=== PATIENT | male | born 1990 | race Caucasian/White ===

== ENCOUNTER 2017-07-27 01:17 | Inpatient (IN) ==
[2017-07-27 01:57] LABS: Basophils % 0.1 %; Eosinophils % 0.2 %; Hematocrit 31.7 % (37.5-50.1); Immature Granulocytes % 0.6 % (0-4); Lymphocytes # 2.1 K/mcL (0.6-4.6); Lymphocytes % 12.2 %; Mean Corpuscular HGB Conc 34.7 g/dL (31.6-35.5); Mean Corpuscular Hemoglobin 25.6 pg (28.0-33.3); Mean Corpuscular Volume 73.9 fL (83.0-100.0); Mean Platelet Volume 9.6 fL (9.4-12.4); Monocytes # 1.4 K/mcL (0.0-1.3); Monocytes % 8.5 %; Neutrophils # 13.3 K/mcL (1.6-8.9); Platelet Count 299 K/mcL (140-400); Red Blood Count 4.29 M/mcL (4.19-5.50); Red Cell Distribution Width 13.6 % (11.5-14.5); Segmented Neutrophils % 78.4 %
[2017-07-27] MEDS ORDERED: 0.9 % Sodium Chloride 1,000 ML IVC ONE (02:15)
[2017-07-27 02:20] LABS: Alanine Aminotransferase 21 Units/L (7-52); Albumin 3.9 g/dL (3.5-5.7); Alkaline Phosphatase 119 Units/L (34-104); Aspartate Amino Transferase 27 Units/L (13-39); BUN/Creatinine Ratio 14 (6-26); Bilirubin,Direct 0.4 mg/dL (0.0-0.2); Bilirubin,Indirect 0.5 mg/dL (0.0-1.2); Bilirubin,Total 0.9 mg/dL (0.3-1.0); Blood Urea Nitrogen 10 mg/dL (6-20); Calcium 9.4 mg/dL (8.6-10.3); Carbon Dioxide 27 mEq/L (23-29); Chloride 93 mEq/L (98-107); Globulin 4.1 g/dL (2.4-3.5); Glucose 121 mg/dL (70-105); Osmolality,Calculated 270 (280-300); Potassium 3.2 mEq/L (3.5-5.1); Sodium 130 mEq/L (136-145); eGFR For African Americans > 60 (> 60); eGFR For Non-African Americans > 60 (> 60)
[2017-07-27 02:34] LABS: INR 1.4; Prothrombin Time 15.5 Seconds (9.4-12.1)
[2017-07-27 02:37] LABS: Activated Partial Thrombo Time 35.9 Seconds (26.0-36.0)
[2017-07-27 02:40] LABS: Phosphorous 3.7 mg/dL (2.7-4.5)
--- NOTE | 2017-07-27 03:15 | Emergency Department Note ---
Disposition Clinical Impression: Cellulitis Qualifiers: Site of cellulitis: other site Qualified Code(s): L03.818 - Cellulitis of other sites Disposition: Admitted As Inpatient Condition: Undetermined Referrals: Ucellie,Salazar Vizcaino MD [Family Provider] - NONE,PCP [Primary Care Provider] - General Adult HPI - General Chief complaint: ED Wound/Laceration Stated complaint: right shoulder abscess Time Seen by Provider: 07/27/17 02:08 Source: patient, family Mode of arrival: ambulatory Limitations: no limitations Nursing Notes Reviewed: Yes Vital Signs Reviewed: Yes - History of Present Illness HPI Narrative: 26-year-old healthy male returns emergency department after being seen 2 days ago with right anterior clavicular cellulitis that has gotten considerably worse over the last 2 days. I initially saw the patient on 07/25. He stated he fell out of bed and was afraid he was broken. After discussing with the patient I determined this is probably cellulitis. I discharged him with clindamycin to cover for MRSA coverage and told him to return should he get worse. Patient returns today and states that the initial cellulitis was due to heroin injection into his shoulder. Which is a change story than previously and states that he has not injected or done anything to aggravate the cellulitis however has continued to spread despite the fact he is taking the antibiotics as prescribed. Patient states he does have fevers, but denies chills. Denies shortness of breath, dyspnea, chest pain, nausea, vomiting, diarrhea. Onset (ago): day(s) Location: other (Right anterior clavicular) Radiation: non-radiation Pain Severity: severe Pain Scale: 10 Quality: aching Consistency: constant Improves with: nothing Worsens with: nothing Associated symptoms: Reports: fever/chills. Denies: confusion, chest pain, cough, diaphoresis, headaches, loss of appetite, malaise, nausea/vomiting, rash , seizure, shortness of breath, syncope, weakness Treatments Prior to Arrival: none - Related Data Previous Rx's Medication Instructions Recorded Clindamycin [Cleocin] 300 mg PO Q6HR #56 capsule 07/25/17 Allergies Allergy/AdvReac Type Severity Reaction Status Date / Time No Known Allergies Allergy Verified 07/25/17 00:46 All systems ED: reviewed and negative except as stated. Review of Systems: As Per HPI Constitutional: Reports: fever. Denies: chills Cardiovascular: Denies: chest pain, edema, syncope Respiratory: Denies: cough, dyspnea, wheezes, hemoptysis, sputum production Gastrointestinal: Denies: abdominal pain, nausea, vomiting, diarrhea Musculoskeletal: Denies: back pain Integumentary: Reports: other (Cellulitis to right clavicular area that has gotten considerably bigger the last couple days) Past Medical History - Past Medical History Medical history: Reports: no medical history Psychiatric history: Reports: no psych history - Social History Smoking Status: Never smoker Smokeless Tobacco Status: No Alcohol use: Reports: none Drug use: Reports: none Physical Exam - General Limitations: no limitations General appearance: alert, in no apparent distress - Head Head exam: atraumatic, normocephalic, normal inspection - Eye Eye exam: Present: normal appearance, PERRL, EOMI - Neck Neck exam: Present: normal inspection, full ROM, trachea midline - Chest Chest inspection: Present: normal inspection, symmetric chest wall rise - Expanded Chest Exam Breast: erythema: right (Circumferential erythema from cellulitis to the anterior clavicular area), swelling: right (Circumferential erythema from cellulitis to the anterior clavicular area), tenderness: right (Circumferential erythema from cellulitis to the anterior clavicular area) - Respiratory Respiratory exam: Present: normal lung sounds bilaterally - Cardiovascular Cardiovascular exam: Present: regular rate, normal rhythm, normal heart sounds - Back Exam Back exam: Present: normal inspection, full ROM. Absent: tenderness - Neurological Exam Neurological exam: Present: alert, oriented X3 - Psychiatric Psychiatric exam: Present: normal affect, normal mood - Skin Skin exam: Present: warm, dry, intact, normal color Course Course Narrative: 26-year-old healthy male returns emergency department after being seen 2 days ago with right anterior clavicular cellulitis that has gotten considerably worse over the last 2 days. I initially saw the patient on 07/25. He stated he fell out of bed and was afraid he was broken. After discussing with the patient I determined this is probably cellulitis. I discharged him with clindamycin to cover for MRSA coverage and told him to return should he get worse. Patient returns today and states that the initial cellulitis was due to heroin injection into his shoulder. Which is a change story than previously and states that he has not injected or done anything to aggravate the cellulitis however has continued to spread despite the fact he is taking the antibiotics as prescribed. Patient states he does have fevers, but denies chills. Denies shortness of breath, dyspnea, chest pain, nausea, vomiting, diarrhea. Exam reveals approximately a 4 inch wide fluctuants very erythemic area to the anterior right clavicule with large radius of circumferential erythema. There is no drainage from the area. Patient has full range of motion to his right arm and neck. The area does not come up on his neck as a stops just at the base of his neck. We do not have comparative labs as I do not rolled on the last time however patient does appear more ill we did draw CBC and a BMP which shows white count 17. With the large increase of cellulitis and failed outpatient treatment and the elevated white count we will admit for failed outpatient treatment of cellulitis. Page for hospitalist for consult. After blood cultures we will start empiric antibiotics. - Reevaluation(s) Reevaluation #1: Dr. Kimball except the patient and he will be placed on 3 NE. for IV antibiotics and failed outpatient cellulitis. Reevaluation #2: Patient will need surgical consult for I&D of cellulitis, spoke with Dr. Arnold who states she will see patient today and requests a CAT scan prior to seeing him. One had placed CAT scan ordered. Time: 05:16 Vital Signs Temperature 99.1 F 07/27/17 01:17 Pulse Rate 105 07/27/17 01:17 Respiratory Rate 20 07/27/17 01:17 Blood Pressure 125/84 07/27/17 01:17 O2 Sat by Pulse Oximetry 96 07/27/17 01:17 Temperature 99.1 F 07/27/17 01:17 Pulse Rate 79 07/27/17 05:04 Respiratory Rate 18 07/27/17 05:04 Blood Pressure 113/74 07/27/17 05:04 O2 Sat by Pulse Oximetry 97 07/27/17 05:04 Oxygen Delivery Oxygen Delivery Room Air Medical Decision Making - Lab Data Result diagrams: 07/27/17 01:45 07/27/17 01:45 Lab Results 07/27/17 07/27/17 07/27/17 Range/Units 01:45 01:45 01:45 WBC 17.0 H (4.3-11.1) K/mcL RBC 4.29 (4.19-5.50) M/mcL Hgb 11.0 L (12.9-16.9) g/dL Hct 31.7 L (37.5-50.1) % MCV 73.9 L (83.0-100.0) fL MCH 25.6 L (28.0-33.3) pg MCHC 34.7 (31.6-35.5) g/dL RDW 13.6 (11.5-14.5) % Plt Count 299 (140-400) K/mcL MPV 9.6 (9.4-12.4) fL Immature Gran % 0.6 (0-4) % Seg Neutrophils % 78.4 % Lymphocytes % 12.2 % Monocytes % 8.5 % Eosinophils % 0.2 % Basophils % 0.1 % Neutrophils # 13.3 H (1.6-8.9) K/mcL Lymphocytes # 2.1 (0.6-4.6) K/mcL Monocytes # 1.4 H (0.0-1.3) K/mcL Eosinophils # 0.0 (0.0-0.6) K/mcL Basophils # 0.0 (0.0-0.2) K/mcL PT (9.4-12.1) Seconds INR APTT (26.0-36.0) Seconds Sodium 130 L (136-145) mEq/L Potassium 3.2 L (3.5-5.1) mEq/L Chloride 93 L (98-107) mEq/L Carbon Dioxide 27 (23-29) mEq/L BUN 10 (6-20) mg/dL Creatinine 0.71 (0.70-1.30) mg/dL Est GFR ( Amer) > 60 (> 60) Est GFR (Non-Af Amer) > 60 (> 60) BUN/Creatinine Ratio 14 (6-26) Glucose 121 H (70-105) mg/dL Calculated Osmolality 270 L (280-300) Lactic Acid 1.2 (0.5-2.2) mmol/L Calcium 9.4 (8.6-10.3) mg/dL Phosphorus (2.7-4.5) mg/dL Magnesium (1.6-2.6) mg/dL Total Bilirubin 0.9 (0.3-1.0) mg/dL Direct Bilirubin 0.4 H (0.0-0.2) mg/dL Indirect Bilirubin 0.5 (0.0-1.2) mg/dL AST 27 (13-39) Units/L ALT 21 (7-52) Units/L Alkaline Phosphatase 119 H (34-104) Units/L Serum Total Protein 8.0 (6.4-8.9) g/dL Albumin 3.9 (3.5-5.7) g/dL Globulin 4.1 H (2.4-3.5) g/dL Albumin/Globulin Ratio 1.0 L (1.1-2.2) Urine Color (Yellow) Urine Clarity (Clear) Urine pH (5.0-8.0) pH Units Ur Specific [place] (1.010-1.025) Urine Protein (Neg-Trace) mg/dL Urine Glucose (UA) (Normal) mg/dL Urine Ketones (Negative) mg/dL Urine Blood (Negative) Urine Nitrite (Negative) Urine Bilirubin (Negative) Urine Urobilinogen (Normal) mg/dL Ur Leukocyte Esterase (Negative) Ur Culture Indicated? (NO) 07/27/17 07/27/17 07/27/17 Range/Units 01:49 01:49 04:57 WBC (4.3-11.1) K/mcL RBC (4.19-5.50) M/mcL Hgb (12.9-16.9) g/dL Hct (37.5-50.1) % MCV (83.0-100.0) fL MCH (28.0-33.3) pg MCHC (31.6-35.5) g/dL RDW (11.5-14.5) % Plt Count (140-400) K/mcL MPV (9.4-12.4) fL Immature Gran % (0-4) % Seg Neutrophils % % Lymphocytes % % Monocytes % % Eosinophils % % Basophils % % Neutrophils # (1.6-8.9) K/mcL Lymphocytes # (0.6-4.6) K/mcL Monocytes # (0.0-1.3) K/mcL Eosinophils # (0.0-0.6) K/mcL Basophils # (0.0-0.2) K/mcL PT 15.5 H (9.4-12.1) Seconds INR 1.4 APTT 35.9 (26.0-36.0) Seconds Sodium (136-145) mEq/L Potassium (3.5-5.1) mEq/L Chloride (98-107) mEq/L Carbon Dioxide (23-29) mEq/L BUN (6-20) mg/dL Creatinine (0.70-1.30) mg/dL Est GFR ( Amer) (> 60) Est GFR (Non-Af Amer) (> 60) BUN/Creatinine Ratio (6-26) Glucose (70-105) mg/dL Calculated Osmolality (280-300) Lactic Acid (0.5-2.2) mmol/L Calcium (8.6-10.3) mg/dL Phosphorus 3.7 (2.7-4.5) mg/dL Magnesium 2.0 (1.6-2.6) mg/dL Total Bilirubin (0.3-1.0) mg/dL Direct Bilirubin (0.0-0.2) mg/dL Indirect Bilirubin (0.0-1.2) mg/dL AST (13-39) Units/L ALT (7-52) Units/L Alkaline Phosphatase (34-104) Units/L Serum Total Protein (6.4-8.9) g/dL Albumin (3.5-5.7) g/dL Globulin (2.4-3.5) g/dL Albumin/Globulin Ratio (1.1-2.2) Urine Color Yellow (Yellow) Urine Clarity Clear (Clear) Urine pH 6.5 (5.0-8.0) pH Units Ur Specific [place] < 1.005 L (1.010-1.025) Urine Protein Negative (Neg-Trace) mg/dL Urine Glucose (UA) Normal (Normal) mg/dL Urine Ketones Negative (Negative) mg/dL Urine Blood Negative (Negative) Urine Nitrite Negative (Negative) Urine Bilirubin Negative (Negative) Urine Urobilinogen Normal (Normal) mg/dL Ur Leukocyte Esterase Negative (Negative) Ur Culture Indicated? NO (NO)
[2017-07-27 05:10] LABS: Bilirubin,Urine Negative (Negative); Blood,Urine Negative (Negative); Clarity,Urine Clear (Clear); Color,Urine Yellow (Yellow); Glucose,Urine (UA) Normal (Normal); Ketones,Urine Negative (Negative); Leukocyte Esterase,Urine Negative (Negative); Nitrite,Urine Negative (Negative); PH,Urine 6.5 pH Units (5.0-8.0); Protein,Urine Negative (Neg-Trace); Specific Gravity,Urine < 1.005 (1.010-1.025); Urobilinogen,Urine Normal (Normal)
--- NOTE | 2017-07-27 07:46 | Emergency Department Note ---
Attestation Statement - Attestation Attestation: I, Tom Pacheco MD, personally evaluated this patient and discussed their management with the midlevel provicer, [employer]. I reviewed the midlevel provider 's note and agree with the documented findings, medical decision making, and plan of care. 26-year-old male presents to the emergency department complaining of an abscess to the right clavicle region. Symptoms started several days ago. He was seen here about 2 days ago and the area was just indurated at that time. He was started on antibiotics. He returns now with significant worsening of the symptoms despite taking antibiotics. He admits to some fever. On examination patient is a well-developed well-nourished well-appearing young male in no acute distress. He is alert and oriented 3. There is no cyanosis or diaphoresis. There is a large fluctuant abscess overlying the right clavicular area with moderate surrounding cellulitis and erythema and warmth to touch. This does not involve the neck. Breath sounds are clear and equal bilaterally. Heart regular rate and rhythm. Abdomen soft and nontender with normal bowel sounds. Labs reviewed. The hospitalist, Dr. Mcguire, was consulted and accepted admission of the patient.
[2017-07-27] MEDS ORDERED: Naloxone 0.4 MG/ML INJ IVP PRN (08:15)
--- NOTE | 2017-07-27 08:54 | General Surgery Consult Note ---
<Jie Krishnan H - Last Filed: 07/27/17 09:36> Date of Encounter: 07/27/17 Time of Encounter: 08:50 Assessment and Plan (1) Abscess Current Visit: Yes Status: Acute 26-year-old male with history of IVDU with large fluctuant mass consistent with abscess located over his right clavicle. -IV antibiotics with zosyn and vancomycin. -Pain control with acetominophen. -We will obtain CT scan of right shoulder. -Likely bedside I&D. -Abscess fluid to culture-aerobic and anaerobic, gram stain (2) IVDU (intravenous drug user) Current Visit: Yes Status: Acute Patient currently on suboxone. Reports recent relapse. -States he has been in contact with his counselor. -management per primary team. History of Present Illness Consult date: 07/27/17 Reason for consult: other (abscess) Requesting physician: Aric Hartmann History of present illness: Mr. Hector is a 26-year-old male with past medical history of substance abuse who presented to [facility] on 07/27/2017 with complaints of right clavicular swelling and discomfort. Patient states he shot up IV heroin last Sunday in the area of the swelling. After which, he states the area was painful. The area has continued to become swollen and hard. He presented to the emergency department 2 days ago. It was found at that time that the area was indurated. He was given oral antibiotics. He reports antibiotic compliance , however, the area continued to swell and become painful, therefore, he returned. He denies any fevers, chills, or night sweats. He denies any chest pain, palpitations, shortness of breath, or diaphoresis. He denies any abdominal pain, nausea, vomiting, or diarrhea. He denies any weakness or numbness in his right upper extremity. He does report difficulty in moving his neck secondary to pain. Patient states he was clean for 4 years prior to relapsing on Sunday. He takes Suboxone regularly. He denies any other past medical or surgical history. He does report breaking his left clavicle when he was younger. Past Med Surg Social Fam HX - Past Medical History Attestation: Yes The following information was validated with the patient. Source: patient Medical history: other (IV drug use) Psychiatric history: other (Substance abuse) - Past Surgical History Surgical History: no surgical history - Social History Smoking Status: Never smoker Smokeless Tobacco Status: No Alcohol use: none Drug use: opiates, IV Drug Use - Family History Mother Living Status: Still Living Hx Family Autoimmune Disorders: No Father Living Status: Still Living Hx Family Autoimmune Disorders: No Medications and Allergies Buprenorphine HCl/Naloxone HCl [Suboxone 8 mg-2 mg Sl Film] 0.5 film SL QPM 07/15 [History] Buprenorphine HCl/Naloxone HCl [Suboxone 8 mg-2 mg Sl Film] 1 film SL QAM [History] 3 Allergy/AdvReac Type Severity Reaction Status Date / Time No Known Allergies Allergy Verified 07/25/17 00:46 Review of Systems All systems PM: The remainder of the systems were reviewed and are negative - Constitutional no chills, no fever(s), no night sweats - Cardiovascular as per HPI - Respiratory as per HPI, no cough, no stridor - Gastrointestinal as per HPI - Integumentary as per HPI, erythema (In area of clavicle), skin pain - Neurological no abnormal gait, no confusion, no syncope - Psychiatric other (Substance abuse) - Endocrine as per HPI - Allergic/Immunologic no tongue swelling, no throat swelling, no uticaria, no wheezing General Surgery Exam Initial Vital Signs Temp Pulse Resp BP Pulse Ox 99.1 F 105 20 125/84 96 07/27/17 01:17 07/27/17 01:17 07/27/17 01:17 07/27/17 01:17 07/27/17 01:17 - General physical appearance well developed, well nourished, no distress - Eyes normal ocular movement - ENT atraumatic, normocephalic, CN 2-12 grossly intact - Neck trachea midline, no lymphadectomy, other (Patient with a large, approximately 5 cm fluctuant mass anterior to the right clavicle approximately 1 cm to the right of the angle of the neck. There is surrounding erythema and warmth.) - Respiratory normal expansion, normal respiratory effort, clear to percussion, clear to auscultation - Cardiovascular Cardiovascular exam: Present: RRR, no murmurs/rubs/gallops - Abdomen Abdomen general surgery: Present: bowel sounds present, soft, non tender - Neurologic Present: CN 2-12 grossly intact, normal coordination, normal sensation - Psychiatric Psychiatric general surgery: Present: A&Ox3, speech is normal, memory intact Exam Initial Vital Signs Temp Pulse Resp BP Pulse Ox 99.1 F 105 20 125/84 96 07/27/17 01:17 07/27/17 01:17 07/27/17 01:17 07/27/17 01:17 07/27/17 01:17 Results - Labs 07/27/17 01:45 07/27/17 01:45 Abnormal lab results WBC 17.0 K/mcL (4.3-11.1) H 07/27/17 01:45 Hgb 11.0 g/dL (12.9-16.9) L 07/27/17 01:45 Hct 31.7 % (37.5-50.1) L 07/27/17 01:45 MCV 73.9 fL (83.0-100.0) L 07/27/17 01:45 MCH 25.6 pg (28.0-33.3) L 07/27/17 01:45 Neutrophils # 13.3 K/mcL (1.6-8.9) H 07/27/17 01:45 Monocytes # 1.4 K/mcL (0.0-1.3) H 07/27/17 01:45 PT 15.5 Seconds (9.4-12.1) H 07/27/17 01:49 Sodium 130 mEq/L (136-145) L 07/27/17 01:45 Potassium 3.2 mEq/L (3.5-5.1) L 07/27/17 01:45 Chloride 93 mEq/L (98-107) L 07/27/17 01:45 Glucose 121 mg/dL (70-105) H 07/27/17 01:45 Calculated Osmolality 270 (280-300) L 07/27/17 01:45 Direct Bilirubin 0.4 mg/dL (0.0-0.2) H 07/27/17 01:45 Alkaline Phosphatase 119 Units/L (34-104) H 07/27/17 01:45 Globulin 4.1 g/dL (2.4-3.5) H 07/27/17 01:45 Albumin/Globulin Ratio 1.0 (1.1-2.2) L 07/27/17 01:45 Ur Specific [place] < 1.005 (1.010-1.025) L 07/27/17 04:57 All other labs normal. Consult Discharge Plan - Plan Additional Instructions: Wound care- cleanse with soap and water in the shower and pat dry, packed open area with a 1/4 inch plain gauze, cover with dry dressing, tape to secure daily. Referrals: Patricia Naqvi CNP [Advanced Practice Nurse] - 08/06/17 2:30 pm (Hospital follow-up for I&D) Salazar Ash MD [Family Provider] - NONE,PCP [Primary Care Provider] - <Joanne York - Last Filed: 07/27/17 17:50> Date of Encounter: 07/27/17 Review of Systems All systems PM: The remainder of the systems were reviewed and are negative General Surgery Exam Initial Vital Signs Temp Pulse Resp BP Pulse Ox 99.1 F 105 20 125/84 96 07/27/17 01:17 07/27/17 01:17 07/27/17 01:17 07/27/17 01:17 07/27/17 01:17 Exam Initial Vital Signs Temp Pulse Resp BP Pulse Ox 99.1 F 105 20 125/84 96 07/27/17 01:17 07/27/17 01:17 07/27/17 01:17 07/27/17 01:17 07/27/17 01:17 Results - Labs 07/27/17 01:45 07/27/17 01:45 Abnormal lab results WBC 17.0 K/mcL (4.3-11.1) H 07/27/17 01:45 Hgb 11.0 g/dL (12.9-16.9) L 07/27/17 01:45 Hct 31.7 % (37.5-50.1) L 07/27/17 01:45 MCV 73.9 fL (83.0-100.0) L 07/27/17 01:45 MCH 25.6 pg (28.0-33.3) L 07/27/17 01:45 Neutrophils # 13.3 K/mcL (1.6-8.9) H 07/27/17 01:45 Monocytes # 1.4 K/mcL (0.0-1.3) H 07/27/17 01:45 PT 15.5 Seconds (9.4-12.1) H 07/27/17 01:49 Sodium 130 mEq/L (136-145) L 07/27/17 01:45 Potassium 3.2 mEq/L (3.5-5.1) L 07/27/17 01:45 Chloride 93 mEq/L (98-107) L 07/27/17 01:45 Glucose 121 mg/dL (70-105) H 07/27/17 01:45 Calculated Osmolality 270 (280-300) L 07/27/17 01:45 Direct Bilirubin 0.4 mg/dL (0.0-0.2) H 07/27/17 01:45 Alkaline Phosphatase 119 Units/L (34-104) H 07/27/17 01:45 Globulin 4.1 g/dL (2.4-3.5) H 07/27/17 01:45 Albumin/Globulin Ratio 1.0 (1.1-2.2) L 07/27/17 01:45 Ur Specific [place] < 1.005 (1.010-1.025) L 07/27/17 04:57 All other labs normal. - Imaging Additional studies: CT chest personally reviewed by myself - Attending Attestation I examined this patient and my medical decision-making was reviewed with the Resident Physician. I agree with the documented findings, disposition and treatment plan as described except to the extent set forth below.
--- NOTE | 2017-07-27 08:56 | Internal Med History&Physical ---
Date of Encounter: 07/27/17 Time of Encounter: 08:00 Assessment and Plan (1) Abscess Current visit: Yes Status: Acute 1. Will place on Vancomycin and Zosyn. 2. Blood cultures obtained in ER. 3. Consult surgery for I&D of abscess. 4. I ordered CT shoulder to evaluate abscess and for further anatomical assessment. (2) IVDU (intravenous drug user) Current visit: Yes Status: Acute 1. Patient reports this was his first relapse in four years. 2. Will order urine drug screen. 3. Patient on Suboxone -- continue while in the hospital. (3) DVT prophylaxis Current visit: Yes Status: Acute 1. Heparin SQ. Internal Medicine - H&P: HPI Chief complaint: right shoulder pain Admitted From: Emergency Dept Plans for Post Hospital Care: Home History of present illness: Mr. Hector is a 26 year old male who presents the ER tonight/this morning with complaints of worsening pain and swelling in his right shoulder/neck area. He presented to the ER the night before with same symptoms and he came back for worsening findings. Upon his repeat visit to the ER, he admits that he was injecting heroin in that site whereas he did not admit to any injections the previous visit. As such, he was treated for cellulitis and admitted to hospitalist service. Surgery was consulted who requested a CT scan. Upon my assessment of the patient, he complains of exquisite pain, limited range of motion, and low-grade fevers for the last few days. Regarding his heroin use, he states it is the first time he has used drugs in 4 years. He has been clean from street drugs for 4 years until this week when the relapsed. He denies any chest pain or difficulty breathing. He denies any nausea, vomiting, or diarrhea. He denies any numbness or weakness in his arm or hand. Past Med Surg Social Fam HX - Past Medical History Attestation: Yes The following information was validated with the patient. Source: patient, old records reviewed Medical history: no medical history Psychiatric history: no psych history - Past Surgical History Surgical History: no surgical history - Social History Smoking Status: Never smoker Smokeless Tobacco Status: No Alcohol use: none Drug use: IV Drug Use Current living situation: Home, With Family Activity Level: Independent ambulation Recent Out of Country Travel Within the Last 8 Weeks: No - Family History Mother Living Status: Still Living Hx Family Autoimmune Disorders: No Father Living Status: Still Living Hx Family Autoimmune Disorders: No Internal Medicine - H&P: Meds Buprenorphine HCl/Naloxone HCl [Suboxone 8 mg-2 mg Sl Film] 0.5 film SL QPM 07/15 [History] Buprenorphine HCl/Naloxone HCl [Suboxone 8 mg-2 mg Sl Film] 1 film SL QAM [History] 3 Allergy/AdvReac Type Severity Reaction Status Date / Time No Known Allergies Allergy Verified 07/25/17 00:46 - Constitutional Constitutional: chills, fever(s), no night sweats - EENT Eyes: no blurry vision, no change in vision Ears: no ear pain, no tinnitus Nose, mouth and throat: no facial pain, no hoarseness, no nasal congestion, no nasal discharge, no sinus pain, no sore throat, no throat swelling - Cardiovascular Cardiovascular ROS IM: no chest pain, no dyspnea, no dyspnea on exertion, no palpitations, no syncope - Respiratory Respiratory: no cough, no dyspnea, no hemoptysis, no chest congestion, no excessive phlegm production - Gastrointestinal Gastrointestinal: no abdominal pain, no diarrhea, no hematemesis, no hematochezia, no melena, no nausea, no vomiting - Genitourinary Genitourinary ROS male: no dysuria, no flank pain, no hematuria - Musculoskeletal Musculoskeletal ROS IM: arthralgias (right shoulder), limited range of motion ( right shoulder), no numbness, no tingling - Integumentary Integumentary IM: erythema (right shoulder/neck area), no jaundice - Neurological Neurological ROS: no dizziness, no focal weakness, no frequent falls, no headache(s) - Psychiatric Psychiatric: no anxiety, no depression - Endocrine Endocrine IM: no polydipsia, no polyuria - Hematologic/Lymphatic Hematologic/Lymphatic: no easy bruising, no lymphadenopathy - Allergic/Immunologic Allergic/Immunologic: no wheezing, no GI upset with certain foods - Constitutional Vitals: Temp Pulse Resp BP Pulse Ox 97.8 F 65 14 101/62 98 07/27/17 06:51 07/27/17 06:51 07/27/17 06:51 07/27/17 06:51 07/27/17 06:51 General appearance: Present: cooperative, A&O X 3, pleasant, no acute distress, answers questions appropriately - Head Head exam: Present: atraumatic, normal inspection - Eye Eye exam: Present: EOMI, normal appearance, PERRL. Absent: scleral icterus Pupils: Present: normal accommodation - ENT ENT exam: Present: mucous membranes dry, normal exam, normal external ear exam, normal oropharynx - Neck Neck exam general surgery: Present: full ROM, supple, trachea midline. Absent: lymphadenopathy, tenderness, nuchal rigidity - Respiratory Respiratory exam: Present: CTAB. Absent: chest wall tenderness, rales, respiratory distress, rhonchi, wheezes - Cardiovascular Cardiovascular exam: Present: RRR, +S1, +S2. Absent: diastolic murmur, systolic murmur - GI/Abdominal GI/Abdominal exam: Present: normal bowel sounds, soft. Absent: guarding, hepatomegaly, mass, splenomegaly, tenderness - Extremities Exam Extremities exam: Present: full ROM, normal capillary refill, warm, radial pulses palpable and symmetrical. Absent: calf tenderness, joint swelling, tenderness - Back Exam Back exam: Absent: CVA tenderness (L), CVA tenderness (R) - Neurological Exam Neurological exam: Present: alert, CN II-XII intact, oriented X3, no focal deficits - Psychiatric Psychiatric exam: Present: normal affect, normal mood - Skin Skin exam: Present: dry, erythema, warm Additional comments: Area approximately 6x6 cm along upper chest/clavicle area on the right with intense redness, warmth, fluctuance, and tenderness consistent with skin abscess. Area is medial to his shoulder and lateral to the neck. No involvement of neck or shoulder joint on exam. Internal Med - H&P Results - Labs CBC & Chem 7: 07/27/17 01:45 07/27/17 01:45 Labs: Urine 07/27/17 Range/Units 04:57 Urine Color Yellow (Yellow) Urine Clarity Clear (Clear) Urine pH 6.5 (5.0-8.0) pH Units Ur Specific [place] < 1.005 L (1.010-1.025) Urine Protein Negative (Neg-Trace) mg/dL Urine Glucose (UA) Normal (Normal) mg/dL
[2017-07-27] MEDS ORDERED: Lidocaine 1% 20 ML MDV INFILT ONE (09:30)
--- NOTE | 2017-07-27 12:15 | General Surgery Procedure Note ---
Date of procedure: 07/27/17 Pre-op diagnosis: Right neck/chest abscess Post-op diagnosis: same Procedure: After informed consent was obtained and timeout completed, the patient's right chest and neck was prepped and draped. The area was localized with 10 ML's of 1% lidocaine. After achieving appropriate localization, a 3cm incision was made over the most fluctuant area using a size 11 blade. There was immediate return of copious amounts of purulent, foul smelling drainage. The cavity was further opened and decompressed using hemostats. Gram stain, aerobic, and anaerobic cultures were obtained. The cavity was flushed using 40 MLs of saline and then packed with 1/4 inch iodoform gauze and covered with a dry dressing. Complications: none Anesthesia: local Surgeon: Patricia Naqvi Estimated blood loss (cc): 0 Pathology: other (Gram stain, aerobic and anaerobic cultures) Condition: stable Disposition: no change - Patient Status Disposition: Home, Self-Care Condition: Good Overall status at discharge: patient is progressing back to baseline - Discharge Instructions Follow Up With: Salazar Ash MD [Family Provider] - NONE,PCP [Primary Care Provider] - Patricia Naqvi CNP [Advanced Practice Nurse] - 08/06/17 2:30 pm (Hospital follow-up for I&D) Additional Instructions: Wound care- cleanse with soap and water in the shower and pat dry, packed open area with a 1/4 inch plain gauze, cover with dry dressing, tape to secure daily. - Diet and Activity Activity: increase activity as tolerated Diet: regular diet
[2017-07-27] MEDS: Acetaminophen 325 MG TABLET PO PRN ×2 (15:03→21:16)
[2017-07-27] MEDS: 0.9 % Sodium Chloride w KCl 20 MEQ/1,000 ML MLS IVC SCH (15:03)
[2017-07-27 15:27] LABS: Amphetamine Screen,Urine Negative ng/mL (Cutoff=1000); Barbiturate Screen,Urine Negative ng/mL (Cutoff=200); Benzodiazepines Screen,Urine Negative ng/mL (Cutoff=200); Cannabinoid Screen,Urine Negative ng/mL (Cutoff = 50); Cocaine Screen,Urine Negative ng/mL (Cutoff= 300); Opiate Screen,Urine Negative ng/mL (Cutoff=300); Phencyclidine Screen,Urine Negative ng/mL (Cutoff=25)
[2017-07-27] MEDS ORDERED: Piperacillin/Tazobactam 3.375 GM in 0.9 % Sodium Chloride Mini Bag 100 ML IVPB SCH (16:00)
[2017-07-27] MEDS: *HR* Heparin 5,000 UNIT/ML VIAL SQ SCH (17:05)
[2017-07-27] MEDS: (Buprenorphine Hcl/Naloxone Hcl [Suboxone 8 Mg-2 Mg S) SL SCH (17:18)
[2017-07-27] MEDS: Piperacillin/Tazobactam 3.375 GM in 0.9 % Sodium Chloride Mini Bag 100 ML IVPB SCH (23:51)
[2017-07-28 02:21] LABS: Basophils % 0.2 %; Eosinophils # 0.1 K/mcL (0.0-0.6); Eosinophils % 0.9 %; Hematocrit 28.6 % (37.5-50.1); Hemoglobin 9.8 g/dL (12.9-16.9); Immature Granulocytes % 0.6 % (0-4); Lymphocytes # 2.1 K/mcL (0.6-4.6); Lymphocytes % 16.3 %; Mean Corpuscular HGB Conc 34.3 g/dL (31.6-35.5); Mean Corpuscular Hemoglobin 25.1 pg (28.0-33.3); Mean Corpuscular Volume 73.3 fL (83.0-100.0); Mean Platelet Volume 10.2 fL (9.4-12.4); Monocytes % 7.5 %; Neutrophils # 9.4 K/mcL (1.6-8.9); Platelet Count 295 K/mcL (140-400); Red Cell Distribution Width 13.7 % (11.5-14.5); Segmented Neutrophils % 74.5 %
[2017-07-28 02:26] LABS: INR 1.4; Prothrombin Time 15.3 Seconds (9.4-12.1)
[2017-07-28 02:29] LABS: Activated Partial Thrombo Time 31.5 Seconds (26.0-36.0)
[2017-07-28 02:49] LABS: Alanine Aminotransferase 18 Units/L (7-52); Albumin 3.3 g/dL (3.5-5.7); Albumin/Globulin Ratio 0.9 (1.1-2.2); Alkaline Phosphatase 104 Units/L (34-104); Aspartate Amino Transferase 21 Units/L (13-39); BUN/Creatinine Ratio 11 (6-26); Bilirubin,Total 0.6 mg/dL (0.3-1.0); Blood Urea Nitrogen 6 mg/dL (6-20); Carbon Dioxide 28 mEq/L (23-29); Chloride 101 mEq/L (98-107); Globulin 3.6 g/dL (2.4-3.5); Glucose 107 mg/dL (70-105); Osmolality,Calculated 280 (280-300); Potassium 3.6 mEq/L (3.5-5.1); Sodium 136 mEq/L (136-145); Total Protein 6.9 g/dL (6.4-8.9); eGFR For African Americans > 60 (> 60); eGFR For Non-African Americans > 60 (> 60)
[2017-07-28] MEDS: *HR* Heparin 5,000 UNIT/ML VIAL SQ SCH ×2 (05:32→17:43)
[2017-07-28] MEDS ORDERED: 0.9 % Sodium Chloride w KCl 20 MEQ/1,000 ML MLS IVC ONE (07:26)
[2017-07-28] MEDS: Acetaminophen 325 MG TABLET PO PRN ×2 (08:44→22:11)
[2017-07-28] MEDS: Piperacillin/Tazobactam 3.375 GM in 0.9 % Sodium Chloride Mini Bag 100 ML IVPB SCH ×2 (08:44→17:57)
[2017-07-28] MEDS: (Buprenorphine Hcl/Naloxone Hcl [Suboxone 8 Mg-2 Mg S) SL SCH ×2 (08:46→17:44)
[2017-07-28] MEDS: 0.9 % Sodium Chloride w KCl 20 MEQ/1,000 ML MLS IVC SCH (09:03)
--- NOTE | 2017-07-28 09:12 | Internal Med Progress Note ---
Date of Encounter: 07/28/17 Time of Encounter: 09:09 - Assessment and plan (1) Abscess Current Visit: Yes Status: Acute Assessment and plan: s/p I&D on 07/27, continue vancomycin and zosyn (2) Leukocytosis Current Visit: Yes Status: Acute Assessment and plan: trending down from abscess Qualifiers: Leukocytosis type: bandemia Qualified Code(s): D72.825 - Bandemia (3) IVDU (intravenous drug user) Current Visit: Yes Status: Acute Assessment and plan: 1. Patient reports this was his first relapse in four years. 2. Patient on Suboxone -- continue while in the hospital. (4) DVT prophylaxis Current Visit: Yes Status: Acute Assessment and plan: heparin SC - Time Spent With Patient 25 - 35 minutes - Subjective Interval history: Mr. Hector is a 26 year old male who presents the ER with complaints of worsening pain and swelling in his right shoulder/neck area. He presented to the ER the night before with same symptoms and he came back for worsening findings. Upon his repeat visit to the ER, he admits that he was injecting heroin in that area. As such, he was treated for cellulitis and admitted to hospitalist service on 07/27. Surgery was consulted who requested a CT scan. CT showed 1. Approximate 3.2 x 7.7 x 7.5 cm complex fluid collection concerning for abscess.2. Cellulitis. He has I&D on 07/27 doing ok, afebrile, wound is draining pus no culture date available, contineu vancomycin and Zosyn IV wound change per surgery - Constitutional Vitals: Temp Pulse Resp BP Pulse Ox 97.6 F 84 14 115/73 97 07/28/17 08:28 07/28/17 08:28 07/28/17 08:28 07/28/17 08:28 07/28/17 08:28 General appearance: Present: cooperative, A&O X 3, pleasant, no acute distress, answers questions appropriately Exam: CONSTITUTIONAL: patient appears as an age appropriate male in no acute distress. EYES Clear sclerae, bilateral pupils are equal, reactive to light. EMOI. RESPIRATORY: No accessory muscle use, bilateral clear to auscultation, no wheezing, no crackles/rales. CARDIOVASCULAR: Regular heart rate, normal S1 and S2, no murmurs GASTROINTESTINAL: bowel sounds present, soft, no tenderness. MUSCULOSKELETAL: Joints in normal range of motion, no clubbing, no edema, no cyanosis. Bilateral peripheral pulses 2+. NEUROLOGIC: CN II to XII are grossly intact, no focal neurological deficit. Internal Medicine: Result - Labs CBC & Chem 7: 07/28/17 02:08 07/28/17 02:08 Labs: Short CBC 07/28/17 Range/Units 02:08 WBC 12.6 H (4.3-11.1) K/mcL Hgb 9.8 L (12.9-16.9) g/dL Hct 28.6 L (37.5-50.1) % Plt Count 295 (140-400) K/mcL Neutrophils # 9.4 H (1.6-8.9) K/mcL BMP 07/28/17 02:08 Sodium 136 Potassium 3.6 Chloride 101 Carbon Dioxide 28 BUN 6 Creatinine 0.57 L Glucose 107 H Calcium 9.0 Liver Function 07/28/17 Range/Units 02:08 Total Bilirubin 0.6 (0.3-1.0) mg/dL AST 21 (13-39) Units/L ALT 18 (7-52) Units/L Alkaline Phosphatase 104 (34-104) Units/L Albumin 3.3 L (3.5-5.7) g/dL - ABG Interpretation ABG results: PT/INR, D-dimer PT 15.3 Seconds (9.4-12.1) H 07/28/17 02:08 - Impressions Impressions Shoulder CT 07/27/17 08:21 IMPRESSION: 1. Approximate 3.2 x 7.7 x 7.5 cm complex fluid collection concerning for abscess. 2. Cellulitis. D/ /27/2017 11:25:55 Tj Estrada MD / [facility] Interpreting Provider: Tj Estrada MD Consult Discharge Plan - Plan Additional Instructions: Wound care- cleanse with soap and water in the shower and pat dry, packed open area with a 1/4 inch plain gauze, cover with dry dressing, tape to secure daily. Referrals: Patricia Naqvi CNP [Advanced Practice Nurse] - 08/06/17 2:30 pm (Hospital follow-up for I&D) Salazar Ash MD [Family Provider] - NONE,PCP [Primary Care Provider] -
[2017-07-29] MEDS: Piperacillin/Tazobactam 3.375 GM in 0.9 % Sodium Chloride Mini Bag 100 ML IVPB SCH ×3 (01:11→16:57)
[2017-07-29] MEDS: *HR* Heparin 5,000 UNIT/ML VIAL SQ SCH ×3 (05:00→17:11)
[2017-07-29] MEDS: (Buprenorphine Hcl/Naloxone Hcl [Suboxone 8 Mg-2 Mg S) SL SCH ×2 (09:40→18:00)
--- NOTE | 2017-07-29 11:08 | Internal Med Progress Note ---
Date of Encounter: 07/29/17 Time of Encounter: 11:06 - Assessment and plan (1) Abscess Current Visit: Yes Status: Acute Assessment and plan: s/p I&D on 07/27, continue vancomycin and zosyn wound culture growing staph, pending sensitivity wound change per surgery (2) Leukocytosis Current Visit: Yes Status: Acute Assessment and plan: trending down from abscess Qualifiers: Leukocytosis type: bandemia Qualified Code(s): D72.825 - Bandemia (3) IVDU (intravenous drug user) Current Visit: Yes Status: Acute Assessment and plan: 1. Patient reports this was his first relapse in four years. 2. Patient on Suboxone -- continue while in the hospital. (4) DVT prophylaxis Current Visit: Yes Status: Acute Assessment and plan: heparin SC - Time Spent With Patient 25 - 35 minutes - Subjective Interval history: Mr. Hector is a 26 year old male who presents the ER with complaints of worsening pain and swelling in his right shoulder/neck area. He presented to the ER the night before with same symptoms and he came back for worsening findings. Upon his repeat visit to the ER, he admits that he was injecting heroin in that area. As such, he was treated for cellulitis and admitted to hospitalist service on 07/27. Surgery was consulted who requested a CT scan. CT showed 1. Approximate 3.2 x 7.7 x 7.5 cm complex fluid collection concerning for abscess.2. Cellulitis. He has I&D on 07/27 doing ok, afebrile, wound is draining pus, changed 3 times yesterday, now still draining pus wound culture growing staph, contineu vancomycin and Zosyn IV wound change per surgery his girlfriend is going to learn wound care - Constitutional Vitals: Temp Pulse Resp BP Pulse Ox 98.3 F 75 18 102/68 97 07/29/17 10:54 07/29/17 10:54 07/29/17 10:54 07/29/17 10:54 07/29/17 10:54 General appearance: Present: cooperative, A&O X 3, pleasant, no acute distress, answers questions appropriately Exam: CONSTITUTIONAL: patient appears as an age appropriate male in no acute distress. EYES Clear sclerae, bilateral pupils are equal, reactive to light. EMOI. RESPIRATORY: No accessory muscle use, bilateral clear to auscultation, no wheezing, no crackles/rales. CARDIOVASCULAR: Regular heart rate, normal S1 and S2, no murmurs GASTROINTESTINAL: bowel sounds present, soft, no tenderness. MUSCULOSKELETAL: Joints in normal range of motion, no clubbing, no edema, no cyanosis. Bilateral peripheral pulses 2+. NEUROLOGIC: CN II to XII are grossly intact, no focal neurological deficit. Internal Medicine: Result - Labs CBC & Chem 7: 07/28/17 02:08 07/28/17 02:08 - ABG Interpretation ABG results: PT/INR, D-dimer PT 15.3 Seconds (9.4-12.1) H 07/28/17 02:08 Consult Discharge Plan - Plan Additional Instructions: Wound care- cleanse with soap and water in the shower and pat dry, packed open area with a 1/4 inch plain gauze, cover with dry dressing, tape to secure daily. Referrals: Patricia Naqvi CNP [Advanced Practice Nurse] - 08/06/17 2:30 pm (Hospital follow-up for I&D) Salazar Ash MD [Family Provider] - NONE,PCP [Primary Care Provider] -
[2017-07-29] MEDS: Acetaminophen 325 MG TABLET PO PRN ×2 (13:40→21:45)
[2017-07-30] MEDS: Piperacillin/Tazobactam 3.375 GM in 0.9 % Sodium Chloride Mini Bag 100 ML IVPB SCH (00:25)
[2017-07-30 04:49] LABS: Basophils % 0.3 %; Eosinophils # 0.2 K/mcL (0.0-0.6); Eosinophils % 2.4 %; Hematocrit 30.2 % (37.5-50.1); Hemoglobin 9.7 g/dL (12.9-16.9); Immature Granulocytes % 0.5 % (0-4); Lymphocytes # 2.3 K/mcL (0.6-4.6); Mean Corpuscular HGB Conc 32.1 g/dL (31.6-35.5); Mean Corpuscular Hemoglobin 24.7 pg (28.0-33.3); Mean Platelet Volume 10.1 fL (9.4-12.4); Monocytes # 0.8 K/mcL (0.0-1.3); Monocytes % 7.9 %; Neutrophils # 6.5 K/mcL (1.6-8.9); Platelet Count 310 K/mcL (140-400); Red Blood Count 3.92 M/mcL (4.19-5.50); Red Cell Distribution Width 14.4 % (11.5-14.5); Segmented Neutrophils % 65.9 %
[2017-07-30 05:03] LABS: Calcium 9.2 mg/dL (8.6-10.3); Potassium 3.6 mEq/L (3.5-5.1)
[2017-07-30 06:15] LABS: Vancomycin,Trough 34.4 mcg/mL (10-20)
[2017-07-30] MEDS: *HR* Heparin 5,000 UNIT/ML VIAL SQ SCH ×2 (06:26→17:17)
[2017-07-30] MEDS ORDERED: Ampicillin/Sulbactam 3,000 MG in 0.9 % Sodium Chloride Mini Bag 100 ML IVPB SCH (08:00)
[2017-07-30] MEDS: (Buprenorphine Hcl/Naloxone Hcl [Suboxone 8 Mg-2 Mg S) SL SCH ×2 (08:12→17:17)
[2017-07-30] MEDS ORDERED: Aminoglycoside Consult 1 EACH MC ONE (08:16)
[2017-07-30] MEDS: cefTRIAXone 2,000 MG in Water for inj. (sterile) 20 ML 20 ML IVP SCH (08:23)
[2017-07-30] MEDS: 0.9 % Sodium Chloride 1,000 ML IVC SCH ×2 (08:24→17:22)
[2017-07-30] MEDS ORDERED: levoFLOXacin 750 MG TABLET PO SCH (09:00)
--- NOTE | 2017-07-30 09:01 | Nephrology Consult Note ---
Date of Encounter: 07/30/17 Time of Encounter: 08:59 Assessment and Plan (1) Acute kidney failure, unspecified Current Visit: Yes Status: Acute The patient has a clinical picture of acute kidney injury. This is likely related to nephrotoxicity from vancomycin. We need to rule out any type of glomerular disease associated with a deep soft tissue infection although I think this is much less likely. Is also possible he could have interstitial nephritis from the Levaquin although again I think this is less likely. Patient should remain off vancomycin. He should be placed on less nephrotoxic antibiotics. We will check a urinalysis and also check complement levels and follow the patient's renal function. Qualifiers: Acute renal failure type: unspecified Qualified Code(s): N17.9 - Acute kidney failure, unspecified (2) Abscess Current Visit: Yes Status: Acute (3) IVDU (intravenous drug user) Current Visit: Yes Status: Acute History of Present Illness - History of Present Illness This is a 26-year-old male that was admitted after presenting to the emergency room for pain and swelling and an abscess in the right supraclavicular region. Patient reports a history of IV heroin use followed the next day by pain and swelling in that area. CT scan with contrast was done on July 27 which confirmed an abscess. He underwent incision and drainage on that same day. Baseline serum creatinine was 0.57. Today's creatinine is 2.32. Patient had been receiving vancomycin. Vancomycin level today is 34.4. Patient denies any previous history of renal disease. He denies any hematuria proteinuria renal stones or recurrent urinary tract infections. He does have a history of IV drug abuse. He says that he has been clean for the past 4 years until this most recent relapse. The only outpatient medication he takes his Suboxone. Denies any fevers chills or sweats. Past Med Surg Social Fam HX - Past Medical History Medical history: other (IV drug use) Psychiatric history: other (Substance abuse) - Past Surgical History Surgical History: no surgical history - Social History Smoking Status: Never smoker Smokeless Tobacco Status: No Alcohol use: none Drug use: opiates, IV Drug Use - Family History Mother Living Status: Still Living Hx Family Autoimmune Disorders: No Father Living Status: Still Living Hx Family Autoimmune Disorders: No Medications and Allergies Buprenorphine HCl/Naloxone HCl [Suboxone 8 mg-2 mg Sl Film] 0.5 film SL QPM 07/15 [History] Buprenorphine HCl/Naloxone HCl [Suboxone 8 mg-2 mg Sl Film] 1 film SL QAM [History] 3 Allergy/AdvReac Type Severity Reaction Status Date / Time No Known Allergies Allergy Verified 07/25/17 00:46 Review of Systems Constitutional: no excessive sweating, no weight loss Eyes: bilateral: blurred vision (patient denies), diplopia (patient denies) Nose, mouth and throat: no dizziness, no headache(s) Cardiovascular: no chest pain, no palpitations Respiratory: no cough, no dyspnea Gastrointestinal: no abdominal pain, no change in bowel habits Musculoskeletal: no muscle weakness, no numbness Musculoskeletal: right: shoulder pain, shoulder swelling Integumentary: erythema, no hirsutism, no striae Neurological: as per HPI Psychiatric: no depression, no difficulty concentrating Endocrine: as per HPI Hematologic/Lymphatic: no easy bruising, no lymphadenopathy Exam - Vital Signs Vital signs: Initial Vital Signs Temp Pulse Resp BP Pulse Ox 99.1 F 105 20 125/84 96 07/27/17 01:17 07/27/17 01:17 07/27/17 01:17 07/27/17 01:17 07/27/17 01:17 Vital Signs - Last 8 Hours Temp Pulse Resp BP Pulse Ox 07/30/17 08:27 98.1 F 62 14 119/75 97 07/30/17 06:28 98.3 F 67 14 109/57 96 07/30/17 01:10 98.1 F 61 12 103/56 95 Intake and Output 07/29/17 07/30/17 07/30/17 23:59 07:59 15:59 Intake Total 450 / 450 100 / 100 20 / 20 Balance 450 / 450 100 / 100 20 / 20 Intake: IV Fluids 450 / 450 100 / 100 20 / 20 Rocephin 2,000 MG In Water for 20 / 20 inj. (sterile) 20 ML @ 600 mls/ hr IVP Q24H [facility] Rx#:[id number] Zosyn 3.375 GM In 0.9 % Sodium 200 / 200 100 / 100 Chloride (Mini-Bag +) 100 ML @ 25 mls/hr IVPB Q8HR [facility] Rx#: [id number] Vancocin 1,500 MG In 0.9 % 250 / 250 Sodium Chloride 250 ML @ 166.67 mls/hr IVPB Q12H [facility] Rx#: [id number] - General Appearance Exam: The patient is alert and oriented. He is in no acute distress. Lungs clear to auscultation. Heart regular rate and rhythm. Abdomen shows normal bowel sounds braze masses intimately tenderness. There is a large family swelling. There is a dressing over the right shoulder area. Results - Lab Results 07/30/17 04:16 07/30/17 04:16 Most recent lab results Calcium 9.2 mg/dL (8.6-10.3) 07/30/17 04:16 Phosphorus 3.7 mg/dL (2.7-4.5) 07/27/17 01:49 Magnesium 2.0 mg/dL (1.6-2.6) 07/27/17 01:49 Consult Discharge Plan - Plan Additional Instructions: Wound care- cleanse with soap and water in the shower and pat dry, packed open area with a 1/4 inch plain gauze, cover with dry dressing, tape to secure daily. Referrals: Patricia Naqvi CNP [Advanced Practice Nurse] - 08/06/17 2:30 pm (Hospital follow-up for I&D) Salazar Ash MD [Family Provider] - NONE,PCP [Primary Care Provider] -
[2017-07-30] MEDS: Acetaminophen 325 MG TABLET PO PRN (10:04)
--- NOTE | 2017-07-30 13:58 | General Surgery Progress Note ---
Date of Encounter: 07/30/17 Time of Encounter: 13:56 - Assessment and Plan (1) Abscess Current Visit: Yes Status: Acute s/p Bedside I&D 07/27/2017. Final cultures note positive streptococcus anginosus. Plan: Wound care- cleanse with soap and water in the shower and pat dry, packed open area with a 1/4 inch plain gauze, cover with dry dressing, tape to secure daily. Recommend pt's girlfriend complete packing/dressing with bedside RN prior to d/c Follow up as previously recommended ATBX per primary team (2) Acute kidney failure, unspecified Current Visit: Yes Status: Acute Noted d/c of vanc d/t nephrotoxicity. Levofloxacin per primary team. Antibiotic management per primary team Qualifiers: Acute renal failure type: unspecified Qualified Code(s): N17.9 - Acute kidney failure, unspecified Subjective Patient reports: no new complaints, still having pain, pain is less, tolerating a regular diet, voiding w/o difficulty, afebrile Narrative: Pt states packing/dressing changes are getting easier. he states his girlfriend will be completing his packing at home, she has watched dressing changes, and feel comfortable. He denies needs at this time. Objective Vital Signs - Last 8 Hours Temp Pulse Resp BP Pulse Ox 07/30/17 10:39 98.3 F 58 17 114/69 99 07/30/17 08:27 98.1 F 62 14 119/75 97 07/30/17 06:28 98.3 F 67 14 109/57 96 Intake and Output 07/29/17 07/30/17 07/30/17 23:59 07:59 15:59 Intake Total 450 / 450 100 / 100 1380 / 1380 Output Total 0 / 0 Balance 450 / 450 100 / 100 1380 / 1380 Intake: IV Fluids 450 / 450 100 / 100 320 / 320 0.9 % Sodium Chloride 1,000 ML 300 / 300 @ 100 mls/hr IVC .Q10H [facility] Rx#: [id number] Rocephin 2,000 MG In Water for 20 / 20 inj. (sterile) 20 ML @ 600 mls/ hr IVP Q24H [facility] Rx#:[id number] Zosyn 3.375 GM In 0.9 % Sodium 200 / 200 100 / 100 Chloride (Mini-Bag +) 100 ML @ 25 mls/hr IVPB Q8HR [facility] Rx#: [id number] Vancocin 1,500 MG In 0.9 % 250 / 250 Sodium Chloride 250 ML @ 166.67 mls/hr IVPB Q12H [facility] Rx#: [id number] Oral 1060 / 1060 Output: Urine 0 / 0 Other: Meal Lunch Percent of Meal Consumed 100% Weight 76.204 kg Patient Weight 07/30/17 23:59 Weight 76.204 kg - General physical appearance no distress, no pain - ENT atraumatic, normocephalic - Neck Neck exam: trachea midline, no venous distension - Respiratory normal expansion, normal respiratory effort, clear to auscultation - Cardiovascular Cardiovascular exam: Present: RRR - Incision Incision: Present: draining (Right chest I&D site with moderate amount of drainage. See pari mutuel clerk note) - Integumentary no abnormal pigmentation - Neurologic normal coordination, normal sensation - Labs 07/30/17 04:16 07/30/17 04:16 Diabetes panel 07/30/17 Range/Units 04:16 Sodium 137 (136-145) mEq/L Potassium 3.6 (3.5-5.1) mEq/L Chloride 104 (98-107) mEq/L Carbon Dioxide 24 (23-29) mEq/L BUN 9 (6-20) mg/dL Creatinine 2.32 H (0.70-1.30) mg/dL Glucose 84 (70-105) mg/dL Calcium 9.2 (8.6-10.3) mg/dL Calcium panel 07/30/17 Range/Units 04:16 Calcium 9.2 (8.6-10.3) mg/dL Pituitary panel 07/30/17 Range/Units 04:16 Sodium 137 (136-145) mEq/L Potassium 3.6 (3.5-5.1) mEq/L Chloride 104 (98-107) mEq/L Carbon Dioxide 24 (23-29) mEq/L BUN 9 (6-20) mg/dL Creatinine 2.32 H (0.70-1.30) mg/dL Glucose 84 (70-105) mg/dL Calcium 9.2 (8.6-10.3) mg/dL Adrenal panel 07/30/17 Range/Units 04:16 Sodium 137 (136-145) mEq/L Potassium 3.6 (3.5-5.1) mEq/L Chloride 104 (98-107) mEq/L Carbon Dioxide 24 (23-29) mEq/L BUN 9 (6-20) mg/dL Creatinine 2.32 H (0.70-1.30) mg/dL Glucose 84 (70-105) mg/dL Calcium 9.2 (8.6-10.3) mg/dL Consult Discharge Plan - Plan Additional Instructions: Wound care- cleanse with soap and water in the shower and pat dry, packed open area with a 1/4 inch plain gauze, cover with dry dressing, tape to secure daily. Referrals: Patricia Naqvi CNP [Advanced Practice Nurse] - 08/06/17 2:30 pm (Hospital follow-up for I&D)
--- NOTE | 2017-07-30 15:35 | Internal Med Progress Note ---
Date of Encounter: 07/30/17 Time of Encounter: 15:31 - Assessment and plan (1) Abscess Current Visit: Yes Status: Acute Assessment and plan: s/p I&D on 07/27, d/jordana vancomycin and zosyn on 07/30, change to levaqin and ceftriaxone wound culture growing strep, sensitivity is up, can be discharged on oral ATB wound change per surgery (2) Leukocytosis Current Visit: Yes Status: Acute Assessment and plan: trending down from abscess Qualifiers: Leukocytosis type: bandemia Qualified Code(s): D72.825 - Bandemia (3) IVDU (intravenous drug user) Current Visit: Yes Status: Acute Assessment and plan: 1. Patient reports this was his first relapse in four years. 2. Patient on Suboxone -- continue while in the hospital. (4) Acute renal failure Current Visit: Yes Status: Acute Assessment and plan: likley from vancomycin toxicity, vanco d/jordana, consult nephrology Qualifiers: Acute renal failure type: with acute tubular necrosis Qualified Code(s): N17.0 - Acute kidney failure with tubular necrosis (5) DVT prophylaxis Current Visit: Yes Status: Acute Assessment and plan: heparin SC - Time Spent With Patient 25 - 35 minutes - Subjective Interval history: Mr. Hector is a 26 year old male who presents the ER with complaints of worsening pain and swelling in his right shoulder/neck area. He presented to the ER the night before with same symptoms and he came back for worsening findings. Upon his repeat visit to the ER, he admits that he was injecting heroin in that area. As such, he was treated for cellulitis and admitted to hospitalist service on 07/27. Surgery was consulted who requested a CT scan. CT showed 1. Approximate 3.2 x 7.7 x 7.5 cm complex fluid collection concerning for abscess.2. Cellulitis. He has I&D on 07/27 doing better, afebrile, wound drain improved. wound is still very deep and tunneled, but less pus wound culture growing strep anginosus, sensitive to levaquin ans ceftriaxone wound change per surgery his girlfriend is going to learn wound care renal failure from vancomycin toxicity, vanco and zosyn d/jordana, consult nephrology can discharge if Cr trending down - Constitutional Vitals: Temp Pulse Resp BP Pulse Ox 97.7 F 60 16 111/73 99 07/30/17 15:09 07/30/17 15:09 07/30/17 15:09 07/30/17 15:09 07/30/17 15:09 General appearance: Present: cooperative, A&O X 3, pleasant, no acute distress, answers questions appropriately Exam: CONSTITUTIONAL: patient appears as an age appropriate male in no acute distress. EYES Clear sclerae, bilateral pupils are equal, reactive to light. EMOI. RESPIRATORY: No accessory muscle use, bilateral clear to auscultation, no wheezing, no crackles/rales. CARDIOVASCULAR: Regular heart rate, normal S1 and S2, no murmurs GASTROINTESTINAL: bowel sounds present, soft, no tenderness. MUSCULOSKELETAL: Joints in normal range of motion, no clubbing, no edema, no cyanosis. Bilateral peripheral pulses 2+. NEUROLOGIC: CN II to XII are grossly intact, no focal neurological deficit. Internal Medicine: Result - Labs CBC & Chem 7: 07/30/17 04:16 07/30/17 04:16 Labs: Short CBC 07/30/17 Range/Units 04:16 WBC 9.9 (4.3-11.1) K/mcL Hgb 9.7 L (12.9-16.9) g/dL Hct 30.2 L (37.5-50.1) % Plt Count 310 (140-400) K/mcL Neutrophils # 6.5 (1.6-8.9) K/mcL BMP 07/30/17 04:16 Sodium 137 Potassium 3.6 Chloride 104 Carbon Dioxide 24 BUN 9 Creatinine 2.32 H Glucose 84 Calcium 9.2 - ABG Interpretation ABG results: PT/INR, D-dimer PT 15.3 Seconds (9.4-12.1) H 07/28/17 02:08 - Impressions Impressions Shoulder CT 07/27/17 08:21 IMPRESSION: 1. Approximate 3.2 x 7.7 x 7.5 cm complex fluid collection concerning for abscess. 2. Cellulitis. D/ /27/2017 11:25:55 Tj Estrada MD / [facility] Interpreting Provider: Tj Estrada MD Consult Discharge Plan - Plan Additional Instructions: Wound care- cleanse with soap and water in the shower and pat dry, packed open area with a 1/4 inch plain gauze, cover with dry dressing, tape to secure daily. Referrals: Patricia Naqvi CNP [Advanced Practice Nurse] - 08/06/17 2:30 pm (Hospital follow-up for I&D)
[2017-07-30 15:45] LABS: Bilirubin,Urine Negative (Negative); Blood,Urine Negative (Negative); Clarity,Urine Clear (Clear); Color,Urine Yellow (Yellow); Glucose,Urine (UA) Normal (Normal); Ketones,Urine Negative (Negative); Leukocyte Esterase,Urine Negative (Negative); Nitrite,Urine Negative (Negative); PH,Urine 5.5 pH Units (5.0-8.0); Protein,Urine Negative (Neg-Trace); Specific Gravity,Urine 1.015 (1.010-1.025); Urobilinogen,Urine Normal (Normal)
[2017-07-31] MEDS: 0.9 % Sodium Chloride 1,000 ML IVC SCH ×2 (03:06→14:03)
[2017-07-31] MEDS: *HR* Heparin 5,000 UNIT/ML VIAL SQ SCH ×2 (05:20→17:51)
[2017-07-31 07:04] LABS: Albumin 2.9 g/dL (3.5-5.7); Albumin/Globulin Ratio 0.9 (1.1-2.2); Bilirubin,Total 0.3 mg/dL (0.3-1.0); Calcium 8.9 mg/dL (8.6-10.3); Globulin 3.3 g/dL (2.4-3.5); Total Protein 6.2 g/dL (6.4-8.9)
[2017-07-31] MEDS: (Buprenorphine Hcl/Naloxone Hcl [Suboxone 8 Mg-2 Mg S) SL SCH (07:31)
[2017-07-31] MEDS: cefTRIAXone 2,000 MG in Water for inj. (sterile) 20 ML 20 ML IVP SCH (07:32)
--- NOTE | 2017-07-31 08:10 | Nephrology Progress Note ---
Date of Encounter: 07/31/17 Time of Encounter: 08:09 - Assessment and Plan (1) Acute kidney failure, unspecified Current Visit: Yes Status: Acute The patient has nonoliguric acute kidney injury which seems to be related to vancomycin nephrotoxicity. Renal function continues to worsen. Hopefully we will see a trend for renal recovery in the near future. Qualifiers: Acute renal failure type: unspecified Qualified Code(s): N17.9 - Acute kidney failure, unspecified (2) Abscess Current Visit: Yes Status: Acute (3) IVDU (intravenous drug user) Current Visit: Yes Status: Acute Subjective Interval history: Patient reports no new complaints. Her renal perspective his creatinine continues to worsen. Urinalysis is unremarkable. Urine for eosinophils was also negative. Objective - Vital Signs Vital signs: Vital Signs Temp Pulse Resp BP Pulse Ox 07/31/17 08:08 98 07/31/17 07:01 99.0 F 82 18 109/68 98 07/31/17 03:32 98.4 F 84 16 109/69 97 07/30/17 19:32 98.1 F 56 16 126/76 100 07/30/17 15:09 97.7 F 60 16 111/73 99 07/30/17 10:39 98.3 F 58 17 114/69 99 07/30/17 08:27 98.1 F 62 14 119/75 97 Intake and Output 07/30/17 07/31/17 07/31/17 23:59 07:59 15:59 Intake Total 700 / 700 650 / 650 Output Total 800 / 800 0 / 0 Balance -100 / -100 650 / 650 Intake: IV Fluids 700 / 700 650 / 650 0.9 % Sodium Chloride 1,000 ML 700 / 700 650 / 650 @ 100 mls/hr IVC .Q10H [facility] Rx#: [id number] Oral 0 / 0 Output: Urine 800 / 800 0 / 0 Other: Meal Dinner Percent of Meal Consumed 20% Weight 76.4 kg Patient Weight 07/31/17 23:59 Weight 76.4 kg - General Appearance Exam: Patient is alert and oriented. He is in no acute distress. Lungs clear to auscultation. Heart regular rate and rhythm. Abdomen is benign. There is no peripheral edema. There is no abnormal skin rashes. There is a dressing over the right shoulder. - Lab 07/30/17 04:16 07/31/17 06:21 Most recent lab results Calcium 8.9 mg/dL (8.6-10.3) 07/31/17 06:21 Phosphorus 3.7 mg/dL (2.7-4.5) 07/27/17 01:49 Magnesium 2.0 mg/dL (1.6-2.6) 07/27/17 01:49 Consult Discharge Plan - Plan Additional Instructions: Wound care- cleanse with soap and water in the shower and pat dry, packed open area with a 1/4 inch plain gauze, cover with dry dressing, tape to secure daily. Referrals: Patricia Naqvi CNP [Advanced Practice Nurse] - 08/06/17 2:30 pm (Hospital follow-up for I&D)
[2017-07-31] MEDS ORDERED: 0.9 % Sodium Chloride 1,000 ML IVC ONE (08:41)
--- NOTE | 2017-07-31 10:54 | Internal Med Progress Note ---
Date of Encounter: 07/31/17 Time of Encounter: 10:51 - Assessment and plan (1) Abscess Current Visit: Yes Status: Acute Assessment and plan: s/p I&D on 07/27, d/jordana vancomycin and zosyn on 07/30, changed to levaqin and ceftriaxone wound culture growing strep Discontinue levaquin, continue ceftriaxone only (2) Acute kidney failure, unspecified Current Visit: Yes Status: Acute Assessment and plan: Worsening CR and GFR Continue IVF hydration Nephrology is following, recommendations noted and appreciated Qualifiers: Acute renal failure type: unspecified Qualified Code(s): N17.9 - Acute kidney failure, unspecified (3) Cellulitis Current Visit: Yes Status: Acute Assessment and plan: continue ceftriaxone Qualifiers: Site of cellulitis: trunk Site of cellulitis of trunk: chest wall Qualified Code(s): L03.313 - Cellulitis of chest wall (4) DVT prophylaxis Current Visit: Yes Status: Acute Assessment and plan: heparin SC (5) IVDU (intravenous drug user) Current Visit: Yes Status: Acute Assessment and plan: 1. Patient reports this was his first relapse in four years. 2. Patient on Suboxone -- continue while in the hospital. - Subjective Interval history: 26 M admitted for abscess, who also developed DORA possibly from avnco toxicity I have given 1 L bolus in addition to his current fluid regimen He is seen and evaluated at the bedside with his partner He has no new complains - Constitutional Vitals: Temp Pulse Resp BP Pulse Ox 99.0 F 82 18 109/68 98 07/31/17 07:01 07/31/17 07:01 07/31/17 07:01 07/31/17 07:01 07/31/17 08:08 General appearance: Present: cooperative, A&O X 3, pleasant, no acute distress, answers questions appropriately - Head Head exam: Present: atraumatic, normocephalic - Eye Eye exam: Present: PERRL, conjuntiva pink, sclera anicteric Pupils: Present: PERRL - Neck Neck exam general surgery: Present: supple, trachea midline. Absent: lymphadenopathy - Respiratory Respiratory exam: Present: CTAB. Absent: accessory muscle use, rales, rhonchi, wheezes Additional comments: anterior chest wall on the right with clean wound dressing - Cardiovascular Cardiovascular exam: Present: RRR, +S1, +S2. Absent: diastolic murmur, gallop, rubs, systolic murmur - GI/Abdominal GI/Abdominal exam: Present: normal bowel sounds, soft, no peritoneal signs. Absent: distended, tenderness - Extremities Exam Extremities exam: Present: warm, radial pulses palpable and symmetrical. Absent : calf tenderness, cyanotic, pedal edema - Neurological Exam Neurological exam: Present: alert, CN II-XII intact, oriented X3, no focal deficits. Absent: pronater drift, facial droop, speech deficit - Skin Skin exam: Present: dry, intact Internal Medicine: Result - Labs CBC & Chem 7: 07/30/17 04:16 07/31/17 06:21 Labs: BMP 07/31/17 06:21 Sodium 138 Potassium 4.0 Chloride 107 Carbon Dioxide 19 L BUN 14 Creatinine 3.25 H Glucose 67 L Calcium 8.9 Liver Function 07/31/17 Range/Units 06:21 Total Bilirubin 0.3 (0.3-1.0) mg/dL AST 24 (13-39) Units/L ALT 16 (7-52) Units/L Alkaline Phosphatase 74 (34-104) Units/L Albumin 2.9 L (3.5-5.7) g/dL Urine 07/30/17 Range/Units 15:09 Urine Color Yellow (Yellow) Urine Clarity Clear (Clear) Urine pH 5.5 (5.0-8.0) pH Units Ur Specific [place] 1.015 (1.010-1.025) Urine Protein Negative (Neg-Trace) mg/dL Urine Glucose (UA) Normal (Normal) mg/dL - ABG Interpretation ABG results: PT/INR, D-dimer PT 15.3 Seconds (9.4-12.1) H 07/28/17 02:08 - Impressions Impressions Shoulder CT 07/27/17 08:21 IMPRESSION: 1. Approximate 3.2 x 7.7 x 7.5 cm complex fluid collection concerning for abscess. 2. Cellulitis. D/ : / 07/27/2017 11:25:55 Tj Estrada MD / [facility] Interpreting Provider: Tj Estrada MD Consult Discharge Plan - Plan Additional Instructions: Wound care- cleanse with soap and water in the shower and pat dry, packed open area with a 1/4 inch plain gauze, cover with dry dressing, tape to secure daily. Referrals: Patricia Naqvi CNP [Advanced Practice Nurse] - 08/06/17 2:30 pm (Hospital follow-up for I&D)
[2017-07-31] MEDS: Cefdinir 300 MG CAPSULE PO SCH ×2 (14:02→21:10)
[2017-07-31] MEDS: Acetaminophen 325 MG TABLET PO PRN (16:07)
[2017-08-01] MEDS: 0.9 % Sodium Chloride 1,000 ML IVC SCH ×2 (00:10→11:37)
[2017-08-01] MEDS: *HR* Heparin 5,000 UNIT/ML VIAL SQ SCH ×2 (03:52→18:01)
[2017-08-01 06:42] LABS: Albumin 2.8 g/dL (3.5-5.7); Albumin/Globulin Ratio 0.8 (1.1-2.2); Bilirubin,Total 0.4 mg/dL (0.3-1.0); Globulin 3.3 g/dL (2.4-3.5); Potassium 5.1 mEq/L (3.5-5.1); Total Protein 6.1 g/dL (6.4-8.9)
[2017-08-01 07:49] LABS: Complement Component 3 131 mg/dL (88-201); Complement Component 4 30 mg/dL (10-40)
[2017-08-01] MEDS ORDERED: 0.9 % Sodium Chloride 1,000 ML IVC ONE (08:28)
--- NOTE | 2017-08-01 09:52 | Internal Med Progress Note ---
Date of Encounter: 08/01/17 Time of Encounter: 09:51 - Assessment and plan (1) Abscess Current Visit: Yes Status: Acute Assessment and plan: s/p I&D on 07/27, d/jordana vancomycin and zosyn on 07/30, changed to levaqin and ceftriaxone wound culture growing strep Discontinue levaquin 07/31, continue ceftriaxone only-omnicef (2) Acute kidney failure, unspecified Current Visit: Yes Status: Acute Assessment and plan: Worsening CR and GFR Continue IVF hydration Nephrology is following, recommendations noted and appreciated Renal USS noted, normal Patient's UO is adequate Qualifiers: Acute renal failure type: unspecified Qualified Code(s): N17.9 - Acute kidney failure, unspecified (3) Cellulitis Current Visit: Yes Status: Acute Assessment and plan: continue omnicef Qualifiers: Site of cellulitis: trunk Site of cellulitis of trunk: chest wall Qualified Code(s): L03.313 - Cellulitis of chest wall (4) DVT prophylaxis Current Visit: Yes Status: Acute Assessment and plan: heparin SC (5) IVDU (intravenous drug user) Current Visit: Yes Status: Acute Assessment and plan: Patient reports this was his first relapse in four years. Patient on Suboxone - - continue while in the hospital-patient's own. - Subjective Interval history: 26 M admitted for abscess, who also developed DORA possibly from vanco toxicity I have given another 1 L bolus in addition to his current fluid regimen as his kidney function continues to worsen He also has mild hyperkalemia He is having adequate UO He is seen and evaluated at the bedside with his partner He has no new complains I have also requeted a renal USS - Constitutional Vitals: Temp Pulse Resp BP Pulse Ox 98.6 F 80 18 130/81 97 08/01/17 07:08 08/01/17 07:08 08/01/17 07:08 08/01/17 07:08 08/01/17 07:08 General appearance: Present: cooperative, A&O X 3, pleasant, no acute distress, answers questions appropriately - Head Head exam: Present: atraumatic, normocephalic - Eye Eye exam: Present: PERRL, conjuntiva pink, sclera anicteric Pupils: Present: PERRL - Neck Neck exam general surgery: Present: supple, trachea midline. Absent: lymphadenopathy - Respiratory Respiratory exam: Present: CTAB Additional comments: Dressing on chest wall clean and dry - Cardiovascular Cardiovascular exam: Present: RRR, +S1, +S2. Absent: diastolic murmur, gallop, rubs, systolic murmur - GI/Abdominal GI/Abdominal exam: Present: normal bowel sounds, soft, no peritoneal signs. Absent: distended, tenderness - Extremities Exam Extremities exam: Present: warm, radial pulses palpable and symmetrical. Absent : calf tenderness, cyanotic, pedal edema - Neurological Exam Neurological exam: Present: alert, CN II-XII intact, oriented X3, no focal deficits. Absent: pronater drift, facial droop, speech deficit - Skin Skin exam: Present: dry, intact Internal Medicine: Result - Labs CBC & Chem 7: 07/30/17 04:16 08/01/17 06:02 Labs: BMP 08/01/17 06:02 Sodium 141 Potassium 5.1 D Chloride 113 H Carbon Dioxide 16 L BUN 17 Creatinine 3.64 H Glucose 83 Calcium 9.0 Liver Function 08/01/17 Range/Units 06:02 Total Bilirubin 0.4 (0.3-1.0) mg/dL AST 34 (13-39) Units/L ALT 15 (7-52) Units/L Alkaline Phosphatase 63 (34-104) Units/L Albumin 2.8 L (3.5-5.7) g/dL - ABG Interpretation ABG results: PT/INR, D-dimer PT 15.3 Seconds (9.4-12.1) H 07/28/17 02:08 Consult Discharge Plan - Plan Additional Instructions: Wound care- cleanse with soap and water in the shower and pat dry, packed open area with a 1/4 inch plain gauze, cover with dry dressing, tape to secure daily. Referrals: Patricia Naqvi ENVIRONMENTAL SCIENCE TECHNICIAN [Advanced Practice Nurse] - 08/06/17 2:30 pm (Hospital follow-up for I&D)
[2017-08-01] MEDS: Cefdinir 300 MG CAPSULE PO SCH (09:58)
--- NOTE | 2017-08-01 12:28 | Nephrology Progress Note ---
Date of Encounter: 08/01/17 Time of Encounter: 12:27 - Assessment and Plan (1) Acute kidney failure, unspecified Current Visit: Yes Status: Acute The patient has nonoliguric acute kidney injury which seems to be related to vancomycin nephrotoxicity. Unfortunately the patient's renal function continues to worsen. His urinalysis is unremarkable. Urine for eosinophils is negative. He is going to be undergoing a renal ultrasound later today. Qualifiers: Acute renal failure type: unspecified Qualified Code(s): N17.9 - Acute kidney failure, unspecified (2) Abscess Current Visit: Yes Status: Acute (3) IVDU (intravenous drug user) Current Visit: Yes Status: Acute Subjective Interval history: The patient reports no new complaints. Vital signs are stable. He is afebrile. He denies any difficulty emptying his bladder. Urine output is 1.5 L approximately. Renal function continues to worsen. He is scheduled for renal ultrasound later today. Objective - Vital Signs Vital signs: Vital Signs Temp Pulse Resp BP Pulse Ox 08/01/17 11:01 98.7 F 62 18 121/77 96 08/01/17 07:08 98.6 F 80 18 130/81 97 08/01/17 04:10 98.7 F 86 18 130/68 98 07/31/17 23:37 99.5 F 88 18 123/77 98 07/31/17 19:09 98.5 F 73 18 115/69 99 07/31/17 15:26 98.8 F 75 18 118/75 100 Intake and Output 07/31/17 08/01/17 08/01/17 23:59 07:59 15:59 Intake Total 1720 / 1720 1080 / 1080 2500 / 2500 Output Total 300 / 300 1300 / 1300 0 / 0 Balance 1420 / 1420 -220 / -220 2500 / 2500 Intake: IV Fluids 1000 / 1000 2000 / 2000 0.9 % Sodium Chloride 1,000 ML 1000 / 1000 2000 / 2000 @ 3750 mls/hr IVC .Q16M [facility] Rx# :[id number] Oral 720 / 720 1080 / 1080 500 / 500 Output: Urine 300 / 300 1300 / 1300 0 / 0 Other: Weight 76.37 kg Patient Weight 08/01/17 23:59 Weight 76.37 kg - General Appearance Exam: Patient is alert and oriented. He is in no acute distress. Lungs clear to auscultation. Heart regular rate and rhythm. Abdomen is benign. There is no peripheral edema. There is a dressing on his right shoulder area. - Lab 07/30/17 04:16 08/01/17 06:02 Most recent lab results Calcium 9.0 mg/dL (8.6-10.3) 08/01/17 06:02 Phosphorus 3.7 mg/dL (2.7-4.5) 07/27/17 01:49 Magnesium 2.0 mg/dL (1.6-2.6) 07/27/17 01:49 Consult Discharge Plan - Plan Additional Instructions: Wound care- cleanse with soap and water in the shower and pat dry, packed open area with a 1/4 inch plain gauze, cover with dry dressing, tape to secure daily. Referrals: Patricia Naqvi CNP [Advanced Practice Nurse] - 08/06/17 2:30 pm (Hospital follow-up for I&D)
[2017-08-01] MEDS: Acetaminophen 325 MG TABLET PO PRN (18:01)
[2017-08-02] MEDS: 0.9 % Sodium Chloride 1,000 ML IVC SCH ×2 (00:04→09:19)
[2017-08-02] MEDS: *HR* Heparin 5,000 UNIT/ML VIAL SQ SCH ×2 (05:35→20:10)
[2017-08-02] MEDS: Acetaminophen 325 MG TABLET PO PRN ×2 (05:39→18:50)
[2017-08-02 06:04] LABS: Albumin 2.9 g/dL (3.5-5.7); Albumin/Globulin Ratio 0.9 (1.1-2.2); Bilirubin,Total 0.4 mg/dL (0.3-1.0); Calcium 8.6 mg/dL (8.6-10.3); Globulin 3.2 g/dL (2.4-3.5); Potassium 3.9 mEq/L (3.5-5.1); Total Protein 6.1 g/dL (6.4-8.9)
[2017-08-02] MEDS: Cefdinir 300 MG CAPSULE PO SCH (09:20)
--- NOTE | 2017-08-02 09:46 | Nephrology Progress Note ---
Date of Encounter: 08/02/17 Time of Encounter: 09:20 - Assessment and Plan (1) Cellulitis Current Visit: Yes Status: Acute Qualifiers: Site of cellulitis: trunk Site of cellulitis of trunk: chest wall Qualified Code(s): L03.313 - Cellulitis of chest wall (2) Acute kidney failure, unspecified Current Visit: Yes Status: Acute nonoliguric DORA which seems to be related to vancomycin nephrotoxicity, although concerned about what other substance could have been cut in with Heroin as a possible cause/contributing factor. Renal fct slowly improving. Creat 3.59. Documented urine output 2625 cc. I&O's. Avoid nephrotoxins. Qualifiers: Acute renal failure type: unspecified Qualified Code(s): N17.9 - Acute kidney failure, unspecified (3) IVDU (intravenous drug user) Current Visit: Yes Status: Acute Subjective Interval history: Laying in bed eating breakfast. States feels good. Questioning about going home. Explained insult on kidneys. Questioned if he knew what other component was cut in with Heroin. States he does not know. Objective - Vital Signs Vital signs: Vital Signs Temp Pulse Resp BP Pulse Ox 08/02/17 06:50 99.3 F 81 14 118/74 96 08/02/17 04:25 99.7 F H 87 15 119/73 97 08/02/17 00:22 99 08/02/17 00:00 98.9 F 76 14 127/89 99 08/01/17 19:40 99.1 F 74 14 118/80 99 08/01/17 15:10 98.2 F 76 18 133/84 97 08/01/17 11:01 98.7 F 62 18 121/77 96 Intake and Output 08/01/17 08/02/17 08/02/17 23:59 07:59 15:59 Intake Total 1240 / 1240 600 / 600 1000 / 1000 Output Total 0 / 0 1225 / 1225 Balance 1240 / 1240 -625 / -625 1000 / 1000 Intake: IV Fluids 1000 / 1000 1000 / 1000 0.9 % Sodium Chloride 1,000 ML 1000 / 1000 1000 / 1000 @ 100 mls/hr IVC .Q10H [facility] Rx#: [id number] Oral 240 / 240 600 / 600 Output: Urine 0 / 0 1225 / 1225 Other: Meal Dinner Percent of Meal Consumed 100% - General Appearance General appearance: Present: well-developed, well-nourished, appears started age EENT: Present: mucous membranes moist Neck: Present: no JVD Respiratory: Present: clear Cardiology: Present: no edema, regular rate, regular rhythm Gastrointestinal: Present: normoactive bowel sounds, no tenderness Integumentary: Present: warm and dry Neurologic: Present: alert and oriented x3 Psychiatric: Present: mood/affect appropriate, cooperative - Lab 07/30/17 04:16 08/02/17 05:02 Most recent lab results Calcium 8.6 mg/dL (8.6-10.3) 08/02/17 05:02 Phosphorus 3.7 mg/dL (2.7-4.5) 07/27/17 01:49 Magnesium 2.0 mg/dL (1.6-2.6) 07/27/17 01:49 Consult Discharge Plan - Plan Additional Instructions: Wound care- cleanse with soap and water in the shower and pat dry, packed open area with a 1/4 inch plain gauze, cover with dry dressing, tape to secure daily. Referrals: Patricia Naqvi MANAGER STYLE [Advanced Practice Nurse] - 08/06/17 2:30 pm (Hospital follow-up for I&D)
--- NOTE | 2017-08-02 11:49 | Internal Med Progress Note ---
Date of Encounter: 08/02/17 Time of Encounter: 11:48 - Assessment and plan (1) Abscess Current Visit: Yes Status: Acute Assessment and plan: s/p I&D on 07/27, d/jordana vancomycin and zosyn on 07/30, changed to levaqin and ceftriaxone wound culture growing strep Discontinue levaquin 07/31, continue omnicef 07/31 Add flagyl 08/02 (2) Acute kidney failure, unspecified Current Visit: Yes Status: Acute Assessment and plan: USS WNL Slowly improving Non-oliguric, continue IVF, avoid nephrotoxins, continue to monitor Qualifiers: Acute renal failure type: unspecified Qualified Code(s): N17.9 - Acute kidney failure, unspecified (3) Cellulitis Current Visit: Yes Status: Acute Assessment and plan: continue omnicef and flagyl Qualifiers: Site of cellulitis: trunk Site of cellulitis of trunk: chest wall Qualified Code(s): L03.313 - Cellulitis of chest wall (4) DVT prophylaxis Current Visit: Yes Status: Acute Assessment and plan: heparin SC (5) IVDU (intravenous drug user) Current Visit: Yes Status: Acute Assessment and plan: Patient reports this was his first relapse in four years. Patient on Suboxone - - continue while in the hospital-patient's own. - Subjective Interval history: 26 M admitted for abscess, who also developed DORA possibly from vanco toxicity No new complains Renal USS is wNL Wound cultures now growing anerobic daljit, started on flagyl po Renal function is slowly improving - Constitutional Vitals: Temp Pulse Resp BP Pulse Ox 98.2 F 72 16 122/80 97 08/02/17 10:26 08/02/17 10:26 08/02/17 10:26 08/02/17 10:26 08/02/17 10:26 General appearance: Present: cooperative, A&O X 3, pleasant, no acute distress, answers questions appropriately - Head Head exam: Present: atraumatic, normocephalic - Eye Eye exam: Present: PERRL, conjuntiva pink, sclera anicteric Pupils: Present: PERRL - Neck Neck exam general surgery: Present: supple, trachea midline. Absent: lymphadenopathy - Respiratory Respiratory exam: Present: CTAB. Absent: accessory muscle use, rales, rhonchi, wheezes Additional comments: LEft upper chest wall dressing clean and dry - Cardiovascular Cardiovascular exam: Present: RRR, +S1, +S2. Absent: diastolic murmur, gallop, rubs, systolic murmur - GI/Abdominal GI/Abdominal exam: Present: normal bowel sounds, soft, no peritoneal signs. Absent: distended, tenderness - Extremities Exam Extremities exam: Present: warm, radial pulses palpable and symmetrical. Absent : calf tenderness, cyanotic, pedal edema - Neurological Exam Neurological exam: Present: alert, CN II-XII intact, oriented X3, no focal deficits. Absent: pronater drift, facial droop, speech deficit - Skin Skin exam: Present: dry, intact Internal Medicine: Result - Labs CBC & Chem 7: 07/30/17 04:16 08/02/17 05:02 Labs: BMP 08/02/17 05:02 Sodium 140 Potassium 3.9 Chloride 113 H Carbon Dioxide 19 L BUN 17 Creatinine 3.59 H Glucose 89 Calcium 8.6 Liver Function 08/02/17 Range/Units 05:02 Total Bilirubin 0.4 (0.3-1.0) mg/dL AST 22 (13-39) Units/L ALT 13 (7-52) Units/L Alkaline Phosphatase 58 (34-104) Units/L Albumin 2.9 L (3.5-5.7) g/dL - ABG Interpretation ABG results: PT/INR, D-dimer PT 15.3 Seconds (9.4-12.1) H 07/28/17 02:08 - Impressions Impressions Retroperitoneum Ultrasound 08/01/17 14:30 IMPRESSION: Unremarkable ultrasound of the kidneys and urinary bladder. Small amount of ascites in the low pelvis is suspected. D/ / 08/01/2017 15:26:06 Kang Weiner MD / [facility] Interpreting Provider: Kang Weiner MD Consult Discharge Plan - Plan Additional Instructions: Wound care- cleanse with soap and water in the shower and pat dry, packed open area with a 1/4 inch plain gauze, cover with dry dressing, tape to secure daily. Referrals: Patricia Naqvi CNP [Advanced Practice Nurse] - 08/06/17 2:30 pm (Hospital follow-up for I&D)
[2017-08-02] MEDS: metroNIDAZOLE 500 MG TABLET PO SCH ×2 (18:50→21:31)
[2017-08-03] MEDS: 0.9 % Sodium Chloride 1,000 ML IVC SCH ×3 (05:21→19:36)
[2017-08-03] MEDS: *HR* Heparin 5,000 UNIT/ML VIAL SQ SCH ×2 (05:22→18:03)
[2017-08-03 06:00] LABS: Calcium 8.8 mg/dL (8.6-10.3); Potassium 4.6 mEq/L (3.5-5.1)
[2017-08-03] MEDS: metroNIDAZOLE 500 MG TABLET PO SCH ×3 (08:46→20:41)
[2017-08-03] MEDS: Cefdinir 300 MG CAPSULE PO SCH ×2 (08:46→19:36)
--- NOTE | 2017-08-03 09:31 | Nephrology Progress Note ---
Date of Encounter: 08/03/17 Time of Encounter: 08:55 - Assessment and Plan (1) Acute kidney failure, unspecified Current Visit: Yes Status: Acute nonoliguric DORA which seems to be related to vancomycin nephrotoxicity, although concerned about what other substance could have been cut in with Heroin as a possible cause/contributing factor. Renal fct slowly plateaued. Creat 3.57. Documented urine output 2425 cc. I&O's. Avoid nephrotoxins. Qualifiers: Acute renal failure type: unspecified Qualified Code(s): N17.9 - Acute kidney failure, unspecified (2) Cellulitis Current Visit: Yes Status: Acute Qualifiers: Site of cellulitis: trunk Site of cellulitis of trunk: chest wall Qualified Code(s): L03.313 - Cellulitis of chest wall (3) IVDU (intravenous drug user) Current Visit: Yes Status: Acute Subjective Interval history: Up in room. States going home today, not staying. AMA? Discussed insult on kidneys and recommend staying. Objective - Vital Signs Vital signs: Vital Signs Temp Pulse Resp BP Pulse Ox 08/03/17 06:45 99.7 F H 74 16 115/72 95 08/03/17 04:21 98.5 F 84 14 130/86 99 08/02/17 18:57 98.8 F 62 14 140/83 100 08/02/17 15:20 98.3 F 74 14 119/75 100 08/02/17 10:26 98.2 F 72 16 122/80 97 Intake and Output 08/02/17 08/03/17 08/03/17 23:59 07:59 15:59 Intake Total 1060 / 1060 300 / 300 Output Total 600 / 600 1350 / 1350 Balance 460 / 460 -1050 / -1050 Intake: IV Fluids 1000 / 1000 0.9 % Sodium Chloride 1,000 ML 1000 / 1000 @ 100 mls/hr IVC .Q10H [facility] Rx#: [id number] Oral 60 / 60 300 / 300 Output: Urine 600 / 600 1350 / 1350 - General Appearance General appearance: Present: well-developed, well-nourished, appears started age EENT: Present: mucous membranes moist Neck: Present: no JVD Respiratory: Present: clear Cardiology: Present: no edema, regular rate, regular rhythm Gastrointestinal: Present: normoactive bowel sounds, no tenderness Integumentary: Present: warm and dry Neurologic: Present: alert and oriented x3 - Lab 07/30/17 04:16 08/03/17 05:28 Most recent lab results Calcium 8.8 mg/dL (8.6-10.3) 08/03/17 05:28 Phosphorus 3.7 mg/dL (2.7-4.5) 07/27/17 01:49 Magnesium 2.0 mg/dL (1.6-2.6) 07/27/17 01:49 Consult Discharge Plan - Plan Additional Instructions: Wound care- cleanse with soap and water in the shower and pat dry, packed open area with a 1/4 inch plain gauze, cover with dry dressing, tape to secure daily. Referrals: Patricia Naqvi CNP [Advanced Practice Nurse] - 08/06/17 2:30 pm (Hospital follow-up for I&D)
[2017-08-03] MEDS: Acetaminophen 325 MG TABLET PO PRN (18:03)
--- NOTE | 2017-08-03 18:48 | Internal Med Progress Note ---
Date of Encounter: 08/03/17 Time of Encounter: 14:00 - Assessment and plan (1) Cutaneous abscess of chest wall Current Visit: Yes Status: Acute Assessment and plan: On IV abx. Continue current management at this time. (2) Acute renal failure due to tubular necrosis Current Visit: Yes Status: Suspected Assessment and plan: Related to medication. Hopefully has plateaued at this time. Recheck tomorrow. (3) Cellulitis Current Visit: Yes Status: Acute Assessment and plan: continue omnicef and flagyl Qualifiers: Site of cellulitis: trunk Site of cellulitis of trunk: chest wall Qualified Code(s): L03.313 - Cellulitis of chest wall (4) IVDU (intravenous drug user) Current Visit: Yes Status: Chronic Assessment and plan: Patient reports this was his first relapse in four years. Patient on Suboxone - - continue while in the hospital-patient's own. - Subjective Interval history: Mr Hector is currently admitted for abscess and acute renal failure due to Vancomycin. He remains moderate to high risk due to potential for worsening clinical status. Mr Hector wants to go home. He is tearful. His chest is feeling better. No fever or chills. No cough. No GI issues. - Constitutional Vitals: Temp Pulse Resp BP Pulse Ox 98.9 F 59 14 147/81 98 08/03/17 14:43 08/03/17 14:43 08/03/17 14:43 08/03/17 14:43 08/03/17 14:43 General appearance: Present: cooperative, A&O X 3, pleasant, answers questions appropriately - Head Head exam: Present: normocephalic - Eye Eye exam: Present: EOMI, conjuntiva pink - ENT ENT exam: Present: mucous membranes moist - Respiratory Respiratory exam: Present: CTAB. Absent: rhonchi, wheezes - Cardiovascular Cardiovascular exam: Present: RRR. Absent: systolic murmur, tachycardia - GI/Abdominal GI/Abdominal exam: Present: soft. Absent: tenderness - Extremities Exam Extremities exam: Present: warm. Absent: tenderness - Neurological Exam Neurological exam: Present: alert, oriented X3 - Skin Skin exam: Present: dry, warm Additional comments: Dressing intact on chest Internal Medicine: Result - Labs CBC & Chem 7: 07/30/17 04:16 08/03/17 05:28 Labs: BMP 08/03/17 05:28 Sodium 144 Potassium 4.6 Chloride 118 H Carbon Dioxide 17 L BUN 18 Creatinine 3.57 H Glucose 89 Calcium 8.8 - ABG Interpretation ABG results: PT/INR, D-dimer PT 15.3 Seconds (9.4-12.1) H 07/28/17 02:08 Consult Discharge Plan - Plan Additional Instructions: Wound care- cleanse with soap and water in the shower and pat dry, packed open area with a 1/4 inch plain gauze, cover with dry dressing, tape to secure daily. Referrals: Patricia Naqvi CNP [Advanced Practice Nurse] - 08/06/17 2:30 pm (Hospital follow-up for I&D)
[2017-08-04] MEDS: 0.9 % Sodium Chloride 1,000 ML IVC SCH ×2 (01:56→12:50)
[2017-08-04] MEDS: *HR* Heparin 5,000 UNIT/ML VIAL SQ SCH (05:06)
[2017-08-04 05:11] LABS: Hematocrit 25.4 % (37.5-50.1); Hemoglobin 8.7 g/dL (12.9-16.9); Mean Corpuscular HGB Conc 34.3 g/dL (31.6-35.5); Mean Corpuscular Hemoglobin 25.1 pg (28.0-33.3); Mean Corpuscular Volume 73.4 fL (83.0-100.0); Mean Platelet Volume 10.3 fL (9.4-12.4); Platelet Count 285 K/mcL (140-400); Red Blood Count 3.46 M/mcL (4.19-5.50)
[2017-08-04 06:30] LABS: BUN/Creatinine Ratio 19 (6-26); Blood Urea Nitrogen 10 mg/dL (6-20); Calcium 8.5 mg/dL (8.6-10.3); Carbon Dioxide 18 mEq/L (23-29); Chloride 113 mEq/L (98-107); Glucose 90 mg/dL (70-105); Magnesium 1.8 mg/dL (1.6-2.6); Osmolality,Calculated 293 (280-300); Potassium 3.9 mEq/L (3.5-5.1); Sodium 142 mEq/L (136-145); eGFR For African Americans > 60 (> 60); eGFR For Non-African Americans > 60 (> 60)
--- NOTE | 2017-08-04 08:06 | Nephrology Progress Note ---
Date of Encounter: 08/04/17 Time of Encounter: 08:05 - Assessment and Plan (1) Acute kidney failure, unspecified Current Visit: Yes Status: Acute The patient has nonoliguric acute kidney injury which seems to be related to vancomycin nephrotoxicity versus some contaminate in the heroin that the patient injected. The patient's renal function seems to have dramatically improved today. I am going to recheck the creatinine just to make sure is not a lab error. Qualifiers: Acute renal failure type: unspecified Qualified Code(s): N17.9 - Acute kidney failure, unspecified (2) Abscess Current Visit: Yes Status: Acute (3) IVDU (intravenous drug user) Current Visit: Yes Status: Chronic Subjective Interval history: The patient denies any new complaints. He is afebrile. His creatinine has gone from 3.57 yesterday down to 0.54 today. Possible this could be a lab error. Objective - Vital Signs Vital signs: Vital Signs Temp Pulse Resp BP Pulse Ox 08/04/17 07:02 98.9 F 78 16 119/75 96 08/04/17 04:01 98.9 F 80 14 121/79 97 08/03/17 23:52 98.5 F 74 14 128/84 98 08/03/17 19:36 98.1 F 77 14 113/72 97 08/03/17 14:43 98.9 F 59 14 147/81 98 08/03/17 10:55 99.0 F 75 14 115/74 96 Intake and Output 08/03/17 08/04/17 08/04/17 23:59 07:59 15:59 Intake Total 240 / 240 1360 / 1360 Output Total 950 / 950 800 / 800 Balance -710 / -710 560 / 560 Intake: IV Fluids 1000 / 1000 0.9 % Sodium Chloride 1,000 ML 1000 / 1000 @ 100 mls/hr IVC .Q10H [facility] Rx#: [id number] Oral 240 / 240 360 / 360 Output: Urine 950 / 950 800 / 800 Other: Meal Dinner Percent of Meal Consumed 100% # Voids 0 Weight 76.34 kg Patient Weight 08/04/17 23:59 Weight 76.34 kg - General Appearance Exam: Patient is alert and oriented. He is in no acute distress. Lungs clear to auscultation. Heart regular rate and rhythm. Abdomen is benign. There is no peripheral edema. - Lab 08/04/17 04:56 08/04/17 04:56 Most recent lab results Calcium 8.5 mg/dL (8.6-10.3) L 08/04/17 04:56 Phosphorus 3.7 mg/dL (2.7-4.5) 07/27/17 01:49 Magnesium 1.8 mg/dL (1.6-2.6) 08/04/17 04:56 Consult Discharge Plan - Plan Additional Instructions: Wound care- cleanse with soap and water in the shower and pat dry, packed open area with a 1/4 inch plain gauze, cover with dry dressing, tape to secure daily. Referrals: Patricia Naqvi CNP [Advanced Practice Nurse] - 08/06/17 2:30 pm (Hospital follow-up for I&D)
[2017-08-04] MEDS: metroNIDAZOLE 500 MG TABLET PO SCH ×2 (09:44→15:01)
[2017-08-04] MEDS: Cefdinir 300 MG CAPSULE PO SCH (09:44)
[2017-08-04 11:09] VITALS: BP 116/62
[2017-08-04] MEDS: Acetaminophen 325 MG TABLET PO PRN (11:41)
[2017-08-04 12:25] LABS: Hematocrit 25.1 % (37.5-50.1); Hemoglobin 8.6 g/dL (12.9-16.9); Mean Corpuscular HGB Conc 34.3 g/dL (31.6-35.5); Mean Corpuscular Hemoglobin 24.9 pg (28.0-33.3); Mean Corpuscular Volume 72.8 fL (83.0-100.0); Mean Platelet Volume 10.5 fL (9.4-12.4); Platelet Count 278 K/mcL (140-400); Red Blood Count 3.45 M/mcL (4.19-5.50); Red Cell Distribution Width 14.9 % (11.5-14.5)
[2017-08-04 12:44] LABS: Albumin 3.1 g/dL (3.5-5.7); Calcium 8.8 mg/dL (8.6-10.3); Phosphorous 3.8 mg/dL (2.7-4.5); Potassium 3.9 mEq/L (3.5-5.1)
--- NOTE | 2017-08-04 14:57 | Discharge Summary ---
- NOTES TO OUTPATIENT PROVIDER Notes to Outpatient Provider: Pt admitted with chest wall abscess. He developed acute renal failure. He also is anemic with microcytosis and will need further work up of that in the near future. Orders not resulted at time of discharge: Pending orders 07/27/17 13:10 Culture,Anaerobic [RM] Stat Date of Encounter: 08/04/17 Time of Encounter: 14:55 - Discharge Diagnosis (1) Cutaneous abscess of chest wall Priority: Primary Status: Acute (2) Acute renal failure due to tubular necrosis Priority: Secondary Status: Suspected (3) Cellulitis Priority: Secondary Status: Acute Qualifiers: Site of cellulitis: trunk Site of cellulitis of trunk: chest wall Qualified Code(s): L03.313 - Cellulitis of chest wall (4) IVDU (intravenous drug user) Priority: Secondary Status: Chronic (5) Anemia Priority: Secondary Status: Suspected Qualifiers: Anemia type: iron deficiency Iron deficiency anemia type: chronic blood loss Qualified Code(s): D50.0 - Iron deficiency anemia secondary to blood loss (chronic) Hospital course: Mr. Hector is a 26 year old male with no apparent medical history presented to ED with R shoulder pain and swelling. He had been in the ED the evening before and returned as it was worse. He was found to have cellulitis/abscess and was subsequently admitted. Mr Hector was admitted to med surg. He was seen by surgical service and had I& D of area. He was placed on IV abx and culture was sent. Ultimately he was found to grow strep angiosis. He developed acute renal failure thought due to IV Vancomycin. His abx were changed at that time. His renal function was slow to improve and he remained nonoliguric. He was evaluated by renal service as well. Today his renal function has started to decrease slightly. He is doing OK overall and is afebrile. I discussed the need to continue wound care and avoid IVDU. He is significantly anemic and microcytic. He denies prior hx of anemia or bleeding. I discussed that he needs to have this evaluated further as this is significant anemia. He does not want to stay here any longer and have it pursued. He was anemic on arrival and it has decreased with IV fluids. His significant other is in the room and agrees and understands he needs further work up and will take him in to a primary care office. At this point he is going to be discharged home for outpatient follow up. He requested an antibiotic that would be less expensive. As it is a strep species I have sent him with Amoxicillin for another week. Discharge discussed with: patient, family, nurse - Time Spent with Patient Total time spent providing and/or coordinating discharge services: 41min - Discharge Medications Prescriptions: Amoxicillin [Amoxil] 500 mg PO TID #22 capsule Home Medications: Buprenorphine HCl/Naloxone HCl [Suboxone 8 mg-2 mg Sl Film] 0.5 film SL QPM 07/15 [History] Buprenorphine HCl/Naloxone HCl [Suboxone 8 mg-2 mg Sl Film] 1 film SL QAM [History] Acetaminophen [Tylenol] 650 mg PO Q6HR PRN tablet 08/04/17 [Rx] Amoxicillin [Amoxil] 500 mg PO TID #22 capsule 08/04/17 [Rx] Allergies/Adverse Reactions: 3 Allergy/AdvReac Type Severity Reaction Status Date / Time No Known Allergies Allergy Verified 07/25/17 00:46 Date of admission: 07/27/17 08:15 Primary care physician: PCP NONE Consults: 07/30/17 07:53 Consult to Nephrology [CONS] Routine Consulting Provider: Roosevelt Hurtado Reason for Consult: ARF vanco toxicity Time Notified: 07:56 Call Completed: Yes 07/30/17 09:29 Consult to Accountant Certified Public [CONS] Routine Reason for SW Consult: hx IVDU, possible IV antibiotics at d/c Discharging clinician: Robson Pittman Anticipated date of discharge: 08/04/17 - Constitutional Vitals: Temp Pulse Resp BP Pulse Ox 98.4 F 76 15 116/62 97 08/04/17 11:05 08/04/17 11:05 08/04/17 11:05 08/04/17 11:05 08/04/17 12:53 General appearance: Present: cooperative, A&O X 3, pleasant, answers questions appropriately - Head Head exam: Present: normocephalic - Eye Eye exam: Present: conjuntiva pink - ENT ENT exam: Present: mucous membranes dry - Respiratory Respiratory exam: Present: CTAB. Absent: wheezes - Cardiovascular Cardiovascular exam: Present: RRR. Absent: tachycardia - GI/Abdominal GI/Abdominal exam: Present: soft. Absent: distended - Extremities Exam Extremities exam: Present: warm. Absent: tenderness - Neurological Exam Neurological exam: Present: alert, oriented X3 - Skin Skin exam: Present: dry, warm Additional comments: Dressing intact - Patient Status Disposition: Home, Self-Care Condition: Good Functional capacity at discharge: independent ambulation Overall status at discharge: patient is progressing back to baseline - Discharge Instructions Instructions: Amoxicillin (By mouth), Acute Kidney Injury (DC), Cellulitis (DC) Follow Up With: Patricia Naqvi CNP [Advanced Practice Nurse] - 08/06/17 2:30 pm (Hospital follow-up for I&D) Additional Instructions: Wound care- cleanse with soap and water in the shower and pat dry, packed open area with a 1/4 inch plain gauze, cover with dry dressing, tape to secure daily. Follow up with Dr. Hurtado in 1 week. Follow up with residency clinic in 1 week. Please start taking some over the counter iron supplement and vitamin. - Diet and Activity Activity: increase activity as tolerated Diet: advance to your usual diet
[2017-08-04] MEDS ORDERED: Amoxicillin 500 MG CAPSULE PO ONE (15:01)
== END 2017-08-04 15:55 | disposition home or self-care (01) | DRG 602 ==
LOC: EMEROO 01:17 → 3NENU 01:17 → SUATTDRO 08:15 → 3ANU 07-30 07:50
PROVIDERS: ADMIT Internal Medicine; ATTEND Internal Medicine